=== PATIENT | female | born 1950 | race Caucasian/White ===

== ENCOUNTER 2017-01-10 20:05 | Inpatient (IN) | payer SELFPAY ==
[2017-01-10] MEDS ORDERED: IPRATROPIUM/ALBUTEROL 0.5-2.5 MG/3 ML AMPUL NEB ONE ×3 (20:14→22:31)
[2017-01-10] MEDS ORDERED: ALBUTEROL SULFATE 0.083% NEB 2.5 MG/3 ML AMPUL NEB ONE ×3 (20:16→22:31)
[2017-01-10] MEDS ORDERED: PREDNISONE 20 MG TABLET PO ONE (20:17)
[2017-01-10] MEDS ORDERED: MAGNESIUM SULFATE/D5W 1 GM/100 ML RTUPB IV ONE ×2 (20:37)
--- NOTE | 2017-01-10 20:38 | ER Document Report ---
ED Respiratory Problem - General Chief Complaint: Shortness Of Breath Stated Complaint: TROUBLE BREATHING Time seen by provider: 20:38 Mode of Arrival: Ambulatory Information source: Patient - HPI Patient complains to provider of: COPD, Cough, Short of breath Onset: Last week Duration: Continuous, Worse/persistent Quality of pain: Achy Severity: Mild Pain Level: 1 Context: Smoker Short of Breath: Moderate Chest pain/discomfort: Tightness Cough: Productive Sputum amount: Small Sputum color: White Sputum consistency: Mucoid At home treatment: Bronchodilators, Oral steroids Associated symptoms: Chills, Congestion, Cough, Difficulty breathing, Extertional dyspnea, Fever, Short of breath Similar symptoms previously: Yes Recently seen / treated by doctor: Yes Notes: Patient is a 66-year-old female who presents to the emergency room for complaints of cough, shortness of breath, chest tightness, symptoms have been going on for about a week, and have worsened, she was seen by her primary care provider on 2 occasions over the past week, was diagnosed with bronchitis and started on a Z-Chandrakant, also started on steroids, her cough is productive of a small amount of white mucus, patient has a history of COPD, she smokes 2-3 packs per day, she does not currently use oxygen at home, she was never admitted for COPD previously, and never intubated in the past - Related Data Allergies/Adverse Reactions: morphine Allergy (Verified 01/10/17 20:12) Penicillins Allergy (Verified 01/10/17 20:12) Sulfa (Sulfonamide Antibiotics) Allergy (Verified 01/10/17 20:12) Tetracyclines Allergy (Verified 01/10/17 20:12) Past Medical History - General Information source: Patient - Social History Smoking Status: Current Every Day Smoker Family History: Reviewed & Not Pertinent Patient has suicidal ideation: No Patient has homicidal ideation: No Renal/ Medical History: Denies: Hx Peritoneal Dialysis Review of Systems - Review of Systems Constitutional: Fever EENT: No symptoms reported Cardiovascular: No symptoms reported Respiratory: See HPI Gastrointestinal: No symptoms reported Genitourinary: No symptoms reported Female Genitourinary: No symptoms reported Musculoskeletal: No symptoms reported Skin: No symptoms reported Hematologic/Lymphatic: No symptoms reported Neurological/Psychological: No symptoms reported -: Yes All other systems reviewed and negative Physical Exam - Vital signs Vitals: Temp Pulse Resp BP Pulse Ox 97.3 F 103 H 22 H 165/76 H 92 01/10/17 20:10 01/10/17 20:10 01/10/17 20:10 01/10/17 20:10 01/10/17 20:10 Interpretation: Hypertensive, Tachycardic, Tachypneic - General General appearance: Appears well, Alert - HEENT Head: Normocephalic, Atraumatic Eyes: Normal Pupils: PERRL - Respiratory Respiratory status: Tachypnea Chest status: Nontender Breath sounds: Productive cough, Wheezing Chest palpation: Normal - Cardiovascular Rhythm: Regular Heart sounds: Normal auscultation Murmur: No - Abdominal Inspection: Normal Distension: No distension Bowel sounds: Normal Tenderness: Nontender Organomegaly: No organomegaly - Back Back: Normal, Nontender - Extremities General upper extremity: Normal inspection, Nontender, Normal color, Normal ROM , Normal temperature General lower extremity: Normal inspection, Nontender, Normal color, Normal ROM , Normal temperature, Normal weight bearing. No: Lisset's sign - Neurological Neuro grossly intact: Yes Cognition: Normal Orientation: AAOx4 [place] Coma Scale Eye Opening: Spontaneous [place] Coma Scale Verbal: Oriented [place] Coma Scale Motor: Obeys Commands Everardo Coma Scale Total: 15 Speech: Normal Motor strength normal: LUE, RUE, LLE, RLE Sensory: Normal - Psychological Associated symptoms: Normal affect, Normal mood - Skin Skin Temperature: Warm Skin Moisture: Dry Skin Color: Normal Course - Re-evaluation Re-evalutation: 01/11/17 00:48 I attempted to ambulate patient, she became acutely short of breath, pulse ox dropped to 83%, I discussed admission with patient and she is in agreement - Vital Signs Vital signs: Temp Pulse Resp BP Pulse Ox 97.3 F 103 H 20 112/70 95 01/10/17 20:10 01/10/17 20:10 01/11/17 03:01 01/11/17 03:01 01/11/17 03:01 - Laboratory Result Diagrams: 01/10/17 20:25 01/10/17 20:25 Laboratory results interpreted by me: 01/10/17 01/10/17 20:25 20:25 RBC 5.87 H Hgb 17.2 H Hct 51.9 H Plt Count 470 H Chloride 95 L Carbon Dioxide 34 H Calcium 10.5 H AST 61 H ALT 64 H Total Protein 8.7 H - Diagnostic Test Radiology reviewed: Image reviewed, Reports reviewed - EKG Interpretation by Me EKG shows normal: Sinus rhythm Rate: Normal Rhythm: NSR Critical Care Note - Critical Care Note Total time excluding time spent on procedures (mins): 45 Comments: Patient requiring multiple breathing treatments, multiple re-evaluations, requiring admission for further evaluation and treatment Discharge - Discharge Clinical Impression: COPD (chronic obstructive pulmonary disease) Qualifiers: COPD type: COPD with acute exacerbation Qualified Code(s): J44.1 - Chronic obstructive pulmonary disease with (acute) exacerbation Condition: Fair Disposition: ADMITTED INPATIENT Admitting Provider: Hospitalist Unit Admitted: Telemetry
[2017-01-10 20:41] LABS: ABSOLUTE MONOCYTES (AUTO) 0.8 10^3/uL (0.1-1.4); ABSOLUTE NEUT (AUTO) 5.2 10^3/uL (1.7-8.2); BASOPHILS % (AUTO) 0.5 % (0-2); EOSINOPHILS % (AUTO) 0.5 % (0-6); HEMATOCRIT 51.9 % (36.0-47.0); HEMOGLOBIN 17.2 g/dL (12.0-15.5); HGB HCT DIFFERENCE -0.3; LYMPHOCYTES % (AUTO) 39.7 % (13-45); MEAN CORPUSCULAR HEMOGLOBIN 29.3 pg (27.0-33.4); MEAN CORPUSCULAR HGB CONC 33.1 g/dL (32.0-36.0); MEAN CORPUSCULAR VOLUME 88 fl (80-97); MONOCYTES % (AUTO) 7.7 % (3-13); RED BLOOD COUNT 5.87 10^6/uL (3.72-5.28); RED CELL DISTRIBUTION WIDTH 13.8 % (11.5-14.0); SEGMENTED NEUTROPHILS % (AUTO) 51.6 % (42-78); WHITE BLOOD COUNT 10.1 10^3/uL (4.0-10.5)
[2017-01-10 21:16] LABS: CREATINE KINASE MB 0.94 ng/mL (<4.55)
[2017-01-10 21:24] LABS: TROPONIN I < 0.012 ng/mL
[2017-01-10 21:49] LABS: ALANINE AMINOTRANSFERASE 64 U/L (9-52); ALKALINE PHOSPHATASE 112 U/L (38-126); ANION GAP 14 (5-19); ASPARTATE AMINO TRANSFERASE 61 U/L (14-36); BILIRUBIN,TOTAL 0.8 mg/dL (0.2-1.3); BLOOD UREA NITROGEN 14 mg/dL (7-20); CALCIUM 10.5 mg/dL (8.4-10.2); CARBON DIOXIDE 34 mmol/L (22-30); CHLORIDE 95 mmol/L (98-107); CREATINE KINASE 33 U/L (30-135); GLUCOSE 106 mg/dL (75-110); MAGNESIUM 2.3 mg/dL (1.6-2.3); POTASSIUM 4.6 mmol/L (3.6-5.0); SODIUM 142.8 mmol/L (137-145); TOTAL PROTEIN 8.7 g/dL (6.3-8.2)
[2017-01-11] MEDS ORDERED: ACETAMINOPHEN 325 MG TABLET PO PRN (01:20)
[2017-01-11] MEDS ORDERED: LACTULOSE SYRUP 20 GM/30 ML UDCUP PO ONE (01:20)
[2017-01-11] MEDS ORDERED: KETOROLAC TROMETHAMINE INJ/PF 30 MG/1 ML SDV IV PRN (01:20)
[2017-01-11] MEDS ORDERED: GUAIFENESIN SYRP 200 MG/10 ML UDC PO PRN (01:21)
[2017-01-11] MEDS ORDERED: IPRATROPIUM/ALBUTEROL 0.5-2.5 MG/3 ML AMPUL NEB PRN (01:21)
[2017-01-11] MEDS ORDERED: DILTIAZEM HCL 30 MG TABLET PO ONE (01:30)
[2017-01-11] MEDS ORDERED: FLUTICASONE NASAL SPRAY 50 MCG/SPRY 120 SPRAY/16 GM NASL ONE (01:30)
[2017-01-11] MEDS ORDERED: LEVOFLOXACIN 750 MG/D5W RTU 750 MG/150 ML RTUPB IV ONE (02:00)
[2017-01-11] MEDS ORDERED: FLUTICASONE NASAL SPRAY 50 MCG/SPRY 120 SPRAY/16 GM ONE (02:10)
[2017-01-11] MEDS: IPRATROPIUM/ALBUTEROL 0.5-2.5 MG/3 ML AMPUL NEB SCH ×4 (02:26→19:37)
[2017-01-11 06:22] LABS: ABSOLUTE LYMPHOCYTES (AUTO) 1.4 10^3/uL (0.5-4.7); ABSOLUTE MONOCYTES (AUTO) 0.6 10^3/uL (0.1-1.4); ABSOLUTE NEUT (AUTO) 5.9 10^3/uL (1.7-8.2); BASOPHILS % (AUTO) 0.2 % (0-2); HEMATOCRIT 44.3 % (36.0-47.0); HGB HCT DIFFERENCE -0.8; LYMPHOCYTES % (AUTO) 17.7 % (13-45); MEAN CORPUSCULAR HEMOGLOBIN 29.1 pg (27.0-33.4); MEAN CORPUSCULAR HGB CONC 32.7 g/dL (32.0-36.0); MEAN CORPUSCULAR VOLUME 89 fl (80-97); MONOCYTES % (AUTO) 7.7 % (3-13); RED BLOOD COUNT 4.98 10^6/uL (3.72-5.28); RED CELL DISTRIBUTION WIDTH 14.4 % (11.5-14.0); SEGMENTED NEUTROPHILS % (AUTO) 74.4 % (42-78)
[2017-01-11] MEDS: HEPARIN SOD (PORCINE) 5,000 UNIT/ML 1 ML SYRINGE SUBCUT SCH ×3 (06:24→21:57)
[2017-01-11] MEDS: DILTIAZEM HCL 30 MG TABLET PO SCH ×3 (06:24→17:29)
--- NOTE | 2017-01-11 06:36 | PDOC H&P ---
History of Present Illness Admission Date/PCP: 01/11/17 01:21 ADITYA DE LEÓN, Patient complains of: Sinus congestion and shortness of breath History of Present Illness: JANETH VINSON is a 66 year old female with a past medical history of COPD, Tobacco Dependence with [id number] history currently smoking 2 packs per day. She was in her usual state of health until approximately 2 days ago noting exceptional sinus congestion postnasal drip and nonproductive cough denying fever chills nausea vomiting. In the Emergency room she's found to have an tachypnea, tachycardia, pulse ox in the mid 80s and bicarbonate of 34 she started on supplemental oxygen albuterol and Atrovent and referred to the hospitalist for admission. Patient denies new medications chest pain palpitations nausea vomiting Past Medical History Pulmonary Medical History: Reports: Chronic Obstructive Pulmonary Disease (COPD) Psychiatric Medical History: Reports: Depression Social History Information Source: Patient Smoking Status: Current Every Day Smoker Cigarettes Packs Per Day: 2 Number of Years Smokin Frequency of Alcohol Use: None Hx Recreational Drug Use: No Hx Prescription Drug Abuse: No - Advance Directive Resuscitation Status: Full Code Family History Family History: COPD Parental Family History Reviewed: Yes Children Family History Reviewed: Yes Sibling(s) Family History Reviewed.: Yes Medication/Allergy Home Medications: Albuterol Sulfate [Ventolin Hfa] 2 inh PO Q4H PRN 01/11/17 Prednisone [Prednisone] 20 mg PO DAILY 01/11/17 Allergies/Adverse Reactions: morphine Allergy (Verified 01/10/17 20:12) Penicillins Allergy (Verified 01/10/17 20:12) Sulfa (Sulfonamide Antibiotics) Allergy (Verified 01/10/17 20:12) Tetracyclines Allergy (Verified 01/10/17 20:12) Review of Systems Constitutional: PRESENT: as per HPI Eyes: ABSENT: visual disturbances Ears: ABSENT: hearing changes Nose, Mouth, and Throat: PRESENT: other - Maxillary a sinus congestion and pain to percussion Cardiovascular: ABSENT: chest pain, dyspnea on exertion, edema, orthropnea, palpitations Respiratory: PRESENT: dyspnea. ABSENT: hemoptysis, sputum Gastrointestinal: ABSENT: abdominal pain, constipation, diarrhea, hematemesis, hematochezia, nausea, vomiting Genitourinary: ABSENT: dysuria, hematuria Musculoskeletal: ABSENT: joint swelling Integumentary: ABSENT: rash, wounds Neurological: ABSENT: abnormal gait, abnormal speech, confusion, dizziness, focal weakness, syncope Psychiatric: ABSENT: anxiety, depression, homidical ideation, suicidal ideation Endocrine: ABSENT: cold intolerance, heat intolerance, polydipsia, polyuria Hematologic/Lymphatic: ABSENT: easy bleeding, easy bruising Physical Exam Vital Signs: Temp Pulse Resp BP Pulse Ox 98.0 F 97 21 H 114/72 97 01/11/17 04:35 01/11/17 04:35 01/11/17 04:35 01/11/17 04:35 01/11/17 04:35 Intake & Output 01/09/17 01/10/17 01/11/17 11:59 11:59 11:59 Intake Total 3 Balance 3 Weight 48.4 kg General appearance: PRESENT: cooperative, mild distress, thin Head exam: PRESENT: atraumatic, normocephalic Eye exam: PRESENT: conjunctiva pink, EOMI, PERRLA. ABSENT: scleral icterus Ear exam: PRESENT: normal external ear exam Mouth exam: PRESENT: moist, tongue midline Neck exam: ABSENT: carotid bruit, JVD, lymphadenopathy, thyromegaly Respiratory exam: PRESENT: accessory muscle use, crackles, decreased breath sounds, prolonged expiratory phas, symmetrical, tachypnea. ABSENT: chest wall tenderness, rhonchi, stridor, wheezes Cardiovascular exam: PRESENT: bradycardia Pulses: PRESENT: normal dorsalis pedis pul Vascular exam: PRESENT: normal capillary refill GI/Abdominal exam: PRESENT: normal bowel sounds, soft. ABSENT: distended, guarding, mass, organolmegaly, rebound, tenderness Rectal exam: PRESENT: deferred Extremities exam: PRESENT: full ROM. ABSENT: calf tenderness, clubbing, pedal edema Neurological exam: PRESENT: alert, awake, oriented to person, oriented to place , oriented to time, oriented to situation, CN II-XII grossly intact. ABSENT: motor sensory deficit Psychiatric exam: PRESENT: appropriate affect, normal mood. ABSENT: homicidal ideation, suicidal ideation Skin exam: PRESENT: dry, intact, warm. ABSENT: cyanosis, rash Results Impressions: Chest X-Ray 01/10/17 20:16 IMPRESSION: COPD. NO ACUTE RADIOGRAPHIC FINDING IN THE CHEST. Assessment & Plan - Diagnosis (1) COPD exacerbation Is this a current diagnosis for this admission?: YesPlan: Likely secondary to maxillary sinusitis versus sinus allergy she receive symptomatically management with albuterol Atrovent, prednisone empiric antibiotics and Claritin (2) Acute exacerbation of chronic bronchitis Is this a current diagnosis for this admission?: YesPlan: Please see #1 (3) Maxillary sinusitis Is this a current diagnosis for this admission?: YesPlan: Please see #1 in addition to Flonase (4) Tobacco abuse Is this a current diagnosis for this admission?: YesPlan: Tobacco Dependence patient received tobacco cessation counseling and offered nicotine replacement options (5) Tachycardia Is this a current diagnosis for this admission?: YesPlan: Concern for development of A. fib given her tachycardia and need for albuterol I will place her on low-dose diltiazem - Time Time Spent: 30 to 50 Minutes - Inpatient Certification Medical Necessity: Need Close Monitoring Due to Risk of Patient Decompensation
[2017-01-11 06:47] LABS: HEMOGLOBIN 14.5 g/dL (12.0-15.5)
[2017-01-11 06:50] LABS: ANION GAP 11 (5-19); BLOOD UREA NITROGEN 10 mg/dL (7-20); CALCIUM 9.5 mg/dL (8.4-10.2); CARBON DIOXIDE 32 mmol/L (22-30); CHLORIDE 95 mmol/L (98-107); CREATININE RESULT 0.59 mg/dL (0.52-1.25); GLUCOSE 124 mg/dL (75-110); POTASSIUM 4.4 mmol/L (3.6-5.0); SODIUM 137.8 mmol/L (137-145)
--- NOTE | 2017-01-11 09:39 | EKG REPORT ---
SEVERITY:- BORDERLINE ECG - SINUS RHYTHM POOR R PROGRESSION ANTERIOR PRECORDIAL LEADS. : Confirmed by: Hamlet Burger MD 11-Jan-2017 09:38:09
[2017-01-11] MEDS ORDERED: PREDNISONE 20 MG TABLET PO SCH (10:00)
[2017-01-11] MEDS ORDERED: METHYLPREDNISOLONE INJ 40 MG/1 ML SDV IV ONE (10:30)
[2017-01-11] MEDS: FLUTICASONE NASAL SPRAY 50 MCG/SPRY 120 SPRAY/16 GM NASL SCH ×2 (10:39→21:57)
[2017-01-11] MEDS ORDERED: LORAZEPAM 1 MG TABLET PO PRN ×2 (11:15→17:32)
--- NOTE | 2017-01-11 11:26 | PDOC PROGRESS REPORT ---
Subjective Progress Note for:: 01/11/17 Subjective:: Complaints of a nonproductive cough and shortness of breath. She reports it slightly better than when she presented. Physical Exam Vital Signs: Temp Pulse Resp BP Pulse Ox 97.8 F 107 H 20 123/66 2 L 01/11/17 07:16 01/11/17 08:27 01/11/17 08:27 01/11/17 07:16 01/11/17 08:27 Intake & Output 01/10/17 01/11/17 01/12/17 06:59 06:59 06:59 Intake Total 243 Balance 243 Weight 48.4 kg General appearance: PRESENT: mild distress Eye exam: PRESENT: conjunctiva pink. ABSENT: scleral icterus Mouth exam: PRESENT: moist, tongue midline Neck exam: ABSENT: JVD Respiratory exam: PRESENT: wheezes - Bilateral expiratory wheezes. ABSENT: rales, rhonchi Cardiovascular exam: PRESENT: RRR. ABSENT: diastolic murmur, rubs, systolic murmur GI/Abdominal exam: PRESENT: normal bowel sounds, soft. ABSENT: distended, guarding, mass, organolmegaly, rebound, tenderness Extremities exam: ABSENT: calf tenderness, clubbing, pedal edema Neurological exam: PRESENT: alert, awake, oriented to person, oriented to place , oriented to time, oriented to situation Psychiatric exam: PRESENT: appropriate affect Skin exam: PRESENT: dry, intact, warm. ABSENT: cyanosis, rash Results Laboratory Results: 01/11/17 05:32 01/11/17 05:32 01/11/17 01/11/17 05:32 05:32 WBC 8.0 RBC 4.98 Hgb 14.5 D Hct 44.3 MCV 89 MCH 29.1 MCHC 32.7 RDW 14.4 H Plt Count 418 Seg Neutrophils % 74.4 Lymphocytes % 17.7 Monocytes % 7.7 Eosinophils % 0.0 Basophils % 0.2 Absolute Neutrophils 5.9 Absolute Lymphocytes 1.4 Absolute Monocytes 0.6 Absolute Eosinophils 0.0 Absolute Basophils 0.0 Sodium 137.8 Potassium 4.4 Chloride 95 L Carbon Dioxide 32 H Anion Gap 11 BUN 10 Creatinine 0.59 Est GFR ( Amer) > 60 Est GFR (Non-Af Amer) > 60 Glucose 124 H Calcium 9.5 Impressions: Chest X-Ray 01/10/17 20:16 IMPRESSION: COPD. NO ACUTE RADIOGRAPHIC FINDING IN THE CHEST. Assessment & Plan - Diagnosis (1) COPD exacerbation Is this a current diagnosis for this admission?: YesPlan: Patient most likely has a maxillary sinusitis versus allergic rhinitis as the cause for her acute COPD exacerbation. We will give IV steroids and continue with Levaquin and nebulizers. (2) Maxillary sinusitis Is this a current diagnosis for this admission?: Yes (3) Tachycardia Is this a current diagnosis for this admission?: Yes (4) Anxiety Is this a current diagnosis for this admission?: YesPlan: We'll give Ativan as needed. (5) Tobacco abuse Is this a current diagnosis for this admission?: YesPlan: She is encouraged to quit smoking - Time Time Spent with patient: 25-34 minutes - Inpatient Certification Medical Necessity: Need for IV Antibiotics
[2017-01-11] MEDS: METHYLPREDNISOLONE INJ 40 MG/1 ML SDV IV SCH ×2 (14:18→21:57)
[2017-01-11] MEDS ORDERED: LEVOFLOXACIN 750 MG/D5W RTU 750 MG/150 ML RTUPB IV SCH (18:00)
[2017-01-12] MEDS: DILTIAZEM HCL 30 MG TABLET PO SCH ×2 (00:37→06:01)
[2017-01-12] MEDS: IPRATROPIUM/ALBUTEROL 0.5-2.5 MG/3 ML AMPUL NEB SCH ×2 (01:20→08:14)
[2017-01-12 04:33] LABS: ABSOLUTE LYMPHOCYTES (AUTO) 0.8 10^3/uL (0.5-4.7); ABSOLUTE MONOCYTES (AUTO) 0.1 10^3/uL (0.1-1.4); ABSOLUTE NEUT (AUTO) 5.4 10^3/uL (1.7-8.2); BASOPHILS % (AUTO) 0.2 % (0-2); HEMATOCRIT 43.2 % (36.0-47.0); HEMOGLOBIN 14.6 g/dL (12.0-15.5); HGB HCT DIFFERENCE 0.6; LYMPHOCYTES % (AUTO) 12.8 % (13-45); MEAN CORPUSCULAR HEMOGLOBIN 29.8 pg (27.0-33.4); MEAN CORPUSCULAR HGB CONC 33.8 g/dL (32.0-36.0); MEAN CORPUSCULAR VOLUME 88 fl (80-97); MONOCYTES % (AUTO) 2.1 % (3-13); RED BLOOD COUNT 4.89 10^6/uL (3.72-5.28); RED CELL DISTRIBUTION WIDTH 13.9 % (11.5-14.0); SEGMENTED NEUTROPHILS % (AUTO) 84.9 % (42-78); WHITE BLOOD COUNT 6.4 10^3/uL (4.0-10.5)
[2017-01-12 05:03] LABS: ANION GAP 7 (5-19); BLOOD UREA NITROGEN 16 mg/dL (7-20); CALCIUM 10.4 mg/dL (8.4-10.2); CARBON DIOXIDE 33 mmol/L (22-30); CHLORIDE 97 mmol/L (98-107); CREATININE RESULT 0.59 mg/dL (0.52-1.25); GLUCOSE 123 mg/dL (75-110); SODIUM 136.7 mmol/L (137-145)
[2017-01-12] MEDS: HEPARIN SOD (PORCINE) 5,000 UNIT/ML 1 ML SYRINGE SUBCUT SCH (06:02)
[2017-01-12] MEDS: METHYLPREDNISOLONE INJ 40 MG/1 ML SDV IV SCH (06:02)
[2017-01-12] MEDS ORDERED: LORAZEPAM 0.5 MG TABLET PO PRN (07:04)
[2017-01-12 08:17] VITALS: BP 119/66
--- NOTE | 2017-01-12 10:50 | PDOC DISCHARGE SUMMARY ---
General - Admit/Disc Date/PCP Admission Date/Primary Care Provider: 01/11/17 01:21 ADITYA Raymond SARTHAK, Discharge Date: 01/12/17 - Discharge Diagnosis (1) COPD exacerbation Is this a current diagnosis for this admission?: Yes (2) Maxillary sinusitis Is this a current diagnosis for this admission?: Yes (3) Tachycardia Is this a current diagnosis for this admission?: Yes (4) Anxiety Is this a current diagnosis for this admission?: Yes (5) Tobacco abuse Is this a current diagnosis for this admission?: Yes - Additional Information Resuscitation Status: Full Code Discharge Diet: Regular Discharge Activity: Activity As Tolerated Home Medications: Albuterol Sulfate [Albuterol Sulfate 2.5mg/3 mL] 1 vial IH Q3HP PRN 01/11/17 Albuterol Sulfate [Ventolin Hfa] 2 puff IH Q4HP PRN 01/11/17 Guaifenesin [Mucinex] 600 mg PO Q12 01/11/17 Diltiazem HCl [Diltiazem 24Hr Cd] 120 mg PO DAILY #30 cap.er.24h 01/12/17 Lorazepam [Ativan 0.5 mg Tablet] 0.5 mg PO Q4HP PRN #30 tablet 01/12/17 Prednisone 10 mg PO DAILY #39 tablet 01/12/17 History of Present Illness History of Present Illness: JANETH VINSON is a 66 year old female with history of COPD and smoking history who presented with 2 day history of sinus congestion along with shortness of breath and wheezing. Patient was found to be hypoxic with pulse ox in the mid 80s. She also had significant wheezing. Patient was admitted for further treatment of an acute COPD exacerbation. Hospital Course Hospital Course: 66-year-old female with a long history of tobacco abuse who presented with an acute COPD exacerbation. The patient was treated with IV steroids and nebulizers and had quick improvement. Patient also did have complaints of anxiety and she was given Ativan and this also improved her respiratory status. The patient on the day of discharge is back to her baseline respiratory status and she is encouraged to quit smoking. Patient also hospitalized to develop tachycardia was started on diltiazem. She was switched from short acting diltiazem long-acting diltiazem we'll send her home on. Physical Exam Vital Signs: Temp Pulse Resp BP Pulse Ox 97.5 F 94 18 119/66 94 01/12/17 09:32 01/12/17 09:32 01/12/17 09:32 01/12/17 09:32 01/12/17 09:32 Intake & Output 01/11/17 01/12/17 01/13/17 06:59 06:59 06:59 Intake Total 243 605 Output Total 450 Balance 243 155 Weight 48.4 kg 48.4 kg General appearance: PRESENT: no acute distress Eye exam: PRESENT: conjunctiva pink. ABSENT: scleral icterus Mouth exam: PRESENT: moist, tongue midline Neck exam: ABSENT: JVD Respiratory exam: PRESENT: clear to auscultation zen. ABSENT: rales, rhonchi, wheezes Cardiovascular exam: PRESENT: RRR. ABSENT: diastolic murmur, rubs, systolic murmur GI/Abdominal exam: PRESENT: normal bowel sounds, soft. ABSENT: distended, guarding, mass, organolmegaly, rebound, tenderness Extremities exam: ABSENT: calf tenderness, clubbing, pedal edema Neurological exam: PRESENT: alert, awake, oriented to person, oriented to place , oriented to time, oriented to situation, CN II-XII grossly intact. ABSENT: motor sensory deficit Psychiatric exam: PRESENT: appropriate affect Skin exam: PRESENT: dry, intact, warm. ABSENT: cyanosis, rash Results Laboratory Results: 01/12/17 03:47 01/12/17 03:47 01/12/17 01/12/17 03:47 03:47 WBC 6.4 RBC 4.89 Hgb 14.6 Hct 43.2 MCV 88 MCH 29.8 MCHC 33.8 RDW 13.9 Plt Count 398 Seg Neutrophils % 84.9 H Lymphocytes % 12.8 L Monocytes % 2.1 L Eosinophils % 0.0 Basophils % 0.2 Absolute Neutrophils 5.4 Absolute Lymphocytes 0.8 Absolute Monocytes 0.1 Absolute Eosinophils 0.0 Absolute Basophils 0.0 Sodium 136.7 L Potassium 5.0 Chloride 97 L Carbon Dioxide 33 H Anion Gap 7 BUN 16 Creatinine 0.59 Est GFR ( Amer) > 60 Est GFR (Non-Af Amer) > 60 Glucose 123 H Calcium 10.4 H Impressions: Chest X-Ray 01/10/17 20:16 IMPRESSION: COPD. NO ACUTE RADIOGRAPHIC FINDING IN THE CHEST. Qualifiers PATEINT BEING DISCHARGED WITH ANY OF THE FOLLOWING DIAGNOSIS?: No Plan Discharge Plan: Patient is discharged home and will follow-up with her primary care doctor in 1 week. Time Spent: Greater than 30 Minutes
== END 2017-01-12 10:15 | disposition home or self-care (01) | DRG 192 ==
LOC: ER 20:05 → EH 01-11 01:21 → 5 01-11 03:54
PROVIDERS: ADMIT Internal Medicine; ATTEND Internal Medicine
PROC: 3E0F73Z Introduction of Anti-inflammatory into Respiratory Tract, Via Natural or Artificial Opening (ICD-10-PCS; principal; 2017-01-11)
DX: J44.1 Chronic obstructive pulmonary disease with (acute) exacerbation (principal); J32.0 Chronic maxillary sinusitis; R00.0 Tachycardia, unspecified; F41.9 Anxiety disorder, unspecified; F17.210 Nicotine dependence, cigarettes, uncomplicated; F32.9 Major depressive disorder, single episode, unspecified; Z79.899 Other long term (current) drug therapy; Z79.51 Long term (current) use of inhaled steroids; Z88.6 Allergy status to analgesic agent; Z88.2 Allergy status to sulfonamides; Z88.0 Allergy status to penicillin; Z88.3 Allergy status to other anti-infective agents; Z82.5 Family history of asthma and other chronic lower respiratory diseases
CPT/HCPCS: 36415; 71010; 80048; 80053; 82550; 82553; 83735; 84484; 85025; 87040; 87077; 87186; 93005; 93010; 94640; 94668; 96365; 99291; J1644; J1956; J2920; J3475; J3490; J7512; J7620

== ENCOUNTER 2017-11-16 16:16 | Inpatient (IN) | payer MEDICARE ==
[2017-11-16] MEDS ORDERED: METHYLPREDNISOLONE INJ 125 MG/2 ML SDV ONE (16:34)
[2017-11-16] MEDS ORDERED: IPRATROPIUM/ALBUTEROL 0.5-2.5 MG/3 ML AMPUL NEB ONE ×4 (16:34→17:16)
[2017-11-16] MEDS ORDERED: METHYLPREDNISOLONE INJ 125 MG/2 ML SDV IV ONE (16:37)
--- NOTE | 2017-11-16 17:04 | RADIOLOGY REPORT (SQ) ---
EXAM DESCRIPTION: CHEST SINGLE VIEW COMPLETED DATE/TIME: 11/16/2017 4:53 pm REASON FOR STUDY: copd exacerbaion COMPARISON: 01/10/2017 EXAM PARAMETERS: NUMBER OF VIEWS: One view. TECHNIQUE: Single frontal radiographic view of the chest acquired. RADIATION DOSE: NA LIMITATIONS: None. FINDINGS: LUNGS AND PLEURA: Lung [place] appear over expanded. No developing infiltrates. MEDIASTINUM AND HILAR STRUCTURES: No masses. Contour normal. HEART AND VASCULAR STRUCTURES: Heart normal in size. Normal vasculature. BONES: No acute findings. HARDWARE: None in the chest. OTHER: No other significant finding. IMPRESSION: Overexpansion of the lung [place]. No developing infiltrates. TECHNICAL DOCUMENTATION: JOB ID: [id number] [employer]- All Rights Reserved
[2017-11-16 17:13] LABS: ABSOLUTE BASOPHILS # (AUTO) 0.1 10^3/uL (0.0-0.2); ABSOLUTE EOSINOPHILS # (AUTO) 0.1 10^3/uL (0.0-0.6); ABSOLUTE LYMPHOCYTES (AUTO) 1.6 10^3/uL (0.5-4.7); ABSOLUTE MONOCYTES (AUTO) 0.9 10^3/uL (0.1-1.4); ABSOLUTE NEUT (AUTO) 7.1 10^3/uL (1.7-8.2); BASOPHILS % (AUTO) 0.9 % (0-2); EOSINOPHILS % (AUTO) 0.5 % (0-6); HEMATOCRIT 48.1 % (36.0-47.0); HEMOGLOBIN 16.2 g/dL (12.0-15.5); LYMPHOCYTES % (AUTO) 16.8 % (13-45); MEAN CORPUSCULAR HEMOGLOBIN 30.1 pg (27.0-33.4); MEAN CORPUSCULAR HGB CONC 33.7 g/dL (32.0-36.0); MEAN CORPUSCULAR VOLUME 89 fl (80-97); MONOCYTES % (AUTO) 9.1 % (3-13); PLATELET COUNT 415 10^3/uL (150-450); RED BLOOD COUNT 5.38 10^6/uL (3.72-5.28); RED CELL DISTRIBUTION WIDTH 13.8 % (11.5-14.0); SEGMENTED NEUTROPHILS % (AUTO) 72.7 % (42-78); TOTAL CELLS COUNTED % (AUTO) 100 %; WHITE BLOOD COUNT 9.7 10^3/uL (4.0-10.5)
[2017-11-16 17:42] LABS: ALANINE AMINOTRANSFERASE 27 U/L (9-52); ALBUMIN 4.8 g/dL (3.5-5.0); ALKALINE PHOSPHATASE 150 U/L (38-126); ANION GAP 13 (5-19); ASPARTATE AMINO TRANSFERASE 24 U/L (14-36); BILIRUBIN,DIRECT 0.4 mg/dL (0.0-0.4); BILIRUBIN,TOTAL 0.5 mg/dL (0.2-1.3); BLOOD UREA NITROGEN 17 mg/dL (7-20); CALCIUM 10.6 mg/dL (8.4-10.2); CARBON DIOXIDE 33 mmol/L (22-30); CHLORIDE 93 mmol/L (98-107); CREATINE KINASE 52 U/L (30-135); GLUCOSE 110 mg/dL (75-110); POTASSIUM 4.4 mmol/L (3.6-5.0); SODIUM 138.8 mmol/L (137-145); TOTAL PROTEIN 7.7 g/dL (6.3-8.2)
[2017-11-16] MEDS ORDERED: NORMAL SALINE 1000 ML 1,000 ML IV PRN (17:55)
[2017-11-16] MEDS ORDERED: ONDANSETRON HCL INJ/PF 4 MG/2 ML SDV IV PRN (17:55)
[2017-11-16] MEDS ORDERED: ACETAMINOPHEN 325 MG TABLET PO PRN (17:55)
--- NOTE | 2017-11-16 17:55 | ER Document Report ---
ED General - General Chief Complaint: Shortness Of Breath Stated Complaint: SHORTNESS OF BREATH Time Seen by Provider: 11/16/17 16:36 Mode of Arrival: Ambulatory Information source: Patient, Relative Notes: 67-year-old female history COPD presents with complaints of shortness of breath difficulty breathing. Patient normally smokes 2-3 packs a day has been short of breath over the past few days. Denies any fevers or productivity to cough. Patient was last admitted in January. She is a full code TRAVEL OUTSIDE OF THE [place] IN LAST 30 DAYS: No - HPI Onset: Last week Onset/Duration: Persistent, Worse Quality of pain: No pain Severity: Severe Pain Level: Denies Associated symptoms: Nonproductive cough, Shortness of breath Exacerbated by: Walking Relieved by: Denies Similar symptoms previously: Yes - Patient sent in by family practice which notes after 2 breathing treatments Recently seen / treated by doctor: Yes - Related Data Allergies/Adverse Reactions: morphine Allergy (Verified 11/16/17 16:19) Penicillins Allergy (Verified 11/16/17 16:19) Sulfa (Sulfonamide Antibiotics) Allergy (Verified 11/16/17 16:19) Tetracyclines Allergy (Verified 11/16/17 16:19) Home Medications: Current Home Medications Albuterol Sulfate [Proair HFA] 2 puff IH Q4HP PRN 11/16/17 [History] Fluticasone/Salmeterol [Advair 250-50 Diskus 14 Dose/Diskus] 2 puff IH DAILY 06/26 [History] Multivitamin [Multivitamins] 1 tab PO DAILY 11/16/17 [History] Past Medical History - Social History Smoking Status: Current Every Day Smoker Cigarette use (# per day): Yes Chew tobacco use (# tins/day): No Smoking Education Provided: Yes - Patient counselled regarding cessation for 4 minutes Frequency of alcohol use: None Drug Abuse: None Family History: COPD Patient has suicidal ideation: No Patient has homicidal ideation: No Pulmonary Medical History: Reports: Hx COPD Renal/ Medical History: Denies: Hx Peritoneal Dialysis Psychiatric Medical History: Reports: Hx Depression - Immunizations Hx Diphtheria, Pertussis, Tetanus Vaccination: Yes Review of Systems - Review of Systems Notes: REVIEW OF SYSTEMS: CONSTITUTIONAL : Denies fever, chills, or sweats. Denies recent illness. EENT: Denies eye, ear, throat, or mouth pain or symptoms. Denies nasal or sinus congestion or discharge. Denies throat, tongue, or mouth swelling or difficulty swallowing. CARDIOVASCULAR: Denies chest pain. Denies palpitations or racing or irregular heart beat. Denies ankle edema. RESPIRATORY: Admits to shortness of breath difficulty breathing GASTROINTESTINAL: Denies abdominal pain or distention. Denies nausea, vomiting , or diarrhea. Denies blood in vomitus, stools, or per rectum. Denies black, tarry stools. Denies constipation. GENITOURINARY: Denies difficulty urinating, painful urination, burning, frequency, blood in urine, or discharge. FEMALE GENITOURINARY: Denies vaginal bleeding, heavy or abnormal periods, irregular periods. Denies vaginal discharge or odor. MUSCULOSKELETAL: Denies back or neck pain or stiffness. Denies joint pain or swelling. SKIN: Denies rash, lesions or sores. HEMATOLOGIC : Denies easy bruising or bleeding. LYMPHATIC: Denies swollen, enlarged glands. NEUROLOGICAL: Denies confusion or altered mental status. Denies passing out or loss of consciousness. Denies dizziness or lightheadedness. Denies headache. Denies weakness or paralysis or loss of use of either side. Denies problems with gait or speech. Denies sensory loss, numbness, or tingling. Denies seizures. PSYCHIATRIC: Denies anxiety or stress. Denies depression, suicidal ideation, or homicidal ideation. ALL OTHER SYSTEMS REVIEWED AND NEGATIVE. PHYSICAL EXAMINATION: GENERAL: Thin frail appearing female in significant respiratory distress HEAD: Atraumatic, normocephalic. EYES: Pupils equal round and reactive to light, extraocular movements intact, conjunctiva are normal. ENT: Nares patent, oropharynx clear without exudates. Moist mucous membranes. NECK: Normal range of motion, supple without lymphadenopathy LUNGS: Coarse breath sounds all throughout HEART: Regular rate and rhythm without murmurs ABDOMEN: Soft, nontender, nondistended abdomen. No guarding, no rebound. No masses appreciated. Female : deferred Musculoskeletal: Normal range of motion, no pitting or edema. No cyanosis. NEUROLOGICAL: Cranial nerves grossly intact. Normal speech, normal gait. Normal sensory, motor exams PSYCH: Normal mood, normal affect. SKIN: Warm, Dry, normal turgor, no rashes or lesions noted. Dictation was performed using Dragon voice recognition software Physical Exam - Vital signs Vitals: Pulse Ox 87 L 11/16/17 16:36 Course - Re-evaluation Re-evalutation: 11/16/17 19:08 Patient upon arrival satting 75% on room air, she is not on oxygen at home, she is in significant respiratory distress, reading treatments were started Cymetra was given, we discussed intubation if needed patient is agreeable to this, I was able to turn the patient around with the breathing treatments, she will be admitted to the hospitalist service and has been placed on oxygen - Vital Signs Vital signs: Temp Pulse Resp BP Pulse Ox 97.9 F 30 H 121/70 92 11/16/17 16:46 11/16/17 19:00 11/16/17 19:00 11/16/17 19:00 - Laboratory Result Diagrams: 11/16/17 16:49 11/16/17 16:49 Laboratory results interpreted by me: 11/16/17 11/16/17 11/16/17 16:49 16:49 16:49 RBC 5.38 H Hgb 16.2 H Hct 48.1 H Chloride 93 L Carbon Dioxide 33 H Calcium 10.6 H Alkaline Phosphatase 150 H NT-Pro-B Natriuret Pep 1240 H Critical Care Note - Critical Care Note Total time excluding time spent on procedures (mins): 40 Comments: 40 minutes of critical care time spent in direct contact evaluating and reevaluating the patient, treating symptoms, reviewing labs and studies and speaking with family and consultants excluding any procedures Discharge - Discharge Clinical Impression: Hypoxia COPD (chronic obstructive pulmonary disease) Qualifiers: COPD type: unspecified COPD Qualified Code(s): J44.9 - Chronic obstructive pulmonary disease, unspecified Respiratory failure Qualifiers: Chronicity: acute Respiratory failure complication: unspecified whether with hypoxia or hypercapnia Qualified Code(s): J96.00 - Acute respiratory failure, unspecified whether with hypoxia or hypercapnia Condition: Stable Disposition: ADMITTED INPATIENT Admitting Provider: Hospitalist Unit Admitted: Telemetry
[2017-11-16] MEDS ORDERED: IPRATROPIUM/ALBUTEROL 0.5-2.5 MG/3 ML AMPUL NEB SCH (18:00)
[2017-11-16] MEDS ORDERED: MONTELUKAST SODIUM 10 MG TABLET PO ONE (18:01)
[2017-11-16] MEDS ORDERED: NICOTINE 21 MG/24 HR PATCH.TD24 TD ONE ×2 (18:02→21:45)
[2017-11-16 18:09] LABS: CREATINE KINASE MB 1.99 ng/mL (<4.55)
[2017-11-16 18:12] LABS: TROPONIN I 0.062 ng/mL
--- NOTE | 2017-11-16 18:49 | PDOC H&P ---
History of Present Illness Admission Date/PCP: ILSA RAMIREZ MD Patient complains of: Shortness of breath History of Present Illness: JANETH VINSON is a 67 year old female history of COPD, depression and tobacco use. She states that she has been gradually becoming more short of breath over the last week. Patient states that she noticed when the temperature dropped. Patient states she does not have any fever or chills. Patient did have a productive cough but is no longer productive. It was productive she was producing yellowish sputum. Patient was being evaluated at her PCP office when she was noted to be hypoxic in the high 70s. She does not wear supplemental oxygen at home. They gave her 2 breathing treatments however she continued to be hypoxic. Is instructed to come to the emergency department. In the ED patient was noted to be hypoxic at 75%. Patient was given 3 breathing treatments and started on 2 L oxygen along with 125 mg of IV Solu- Medrol after which her sats are now 95%. Patient would desat when the oxygen was removed. There was no finding on chest x-ray. Hospitalist was called to admit patient for COPD exacerbation with hypoxia. Past Medical History Pulmonary Medical History: Reports: Chronic Obstructive Pulmonary Disease (COPD) Psychiatric Medical History: Reports: Depression Social History Smoking Status: Current Every Day Smoker Frequency of Alcohol Use: None Hx Recreational Drug Use: No Hx Prescription Drug Abuse: No Family History Family History: COPD Parental Family History Reviewed: No Children Family History Reviewed: No Sibling(s) Family History Reviewed.: No Medication/Allergy Home Medications: Albuterol Sulfate [Proair HFA] 2 puff IH Q4HP PRN 11/16/17 Fluticasone/Salmeterol [Advair 250-50 Diskus 14 Dose/Diskus] 2 puff IH DAILY 06/26 Multivitamin [Multivitamins] 1 tab PO DAILY 11/16/17 Allergies/Adverse Reactions: morphine Allergy (Verified 11/16/17 16:19) Penicillins Allergy (Verified 11/16/17 16:19) Sulfa (Sulfonamide Antibiotics) Allergy (Verified 11/16/17 16:19) Tetracyclines Allergy (Verified 11/16/17 16:19) Review of Systems Constitutional: ABSENT: chills, fever(s), headache(s), weight gain, weight loss Eyes: ABSENT: visual disturbances Ears: ABSENT: hearing changes Cardiovascular: PRESENT: dyspnea on exertion. ABSENT: chest pain, edema, orthropnea, palpitations Respiratory: PRESENT: cough, dyspnea. ABSENT: hemoptysis Gastrointestinal: ABSENT: abdominal pain, constipation, diarrhea, hematemesis, hematochezia, nausea, vomiting Genitourinary: ABSENT: dysuria, hematuria Musculoskeletal: ABSENT: joint swelling Integumentary: ABSENT: rash, wounds Neurological: ABSENT: abnormal gait, abnormal speech, confusion, dizziness, focal weakness, syncope Psychiatric: ABSENT: anxiety, depression, homidical ideation, suicidal ideation Endocrine: ABSENT: cold intolerance, heat intolerance, polydipsia, polyuria Hematologic/Lymphatic: ABSENT: easy bleeding, easy bruising Physical Exam Vital Signs: Temp Pulse Resp BP Pulse Ox 97.9 F 26 H 122/80 98 11/16/17 16:46 11/16/17 16:46 11/16/17 16:46 11/16/17 16:46 General appearance: PRESENT: no acute distress, well-developed, well-nourished Head exam: PRESENT: atraumatic, normocephalic Eye exam: PRESENT: conjunctiva pink, EOMI, PERRLA. ABSENT: scleral icterus Ear exam: PRESENT: normal external ear exam Mouth exam: PRESENT: moist, tongue midline Neck exam: ABSENT: carotid bruit, JVD, lymphadenopathy, thyromegaly Respiratory exam: PRESENT: accessory muscle use, decreased breath sounds, tachypnea - Unable to speak in complete sentences, wheezes. ABSENT: rales, rhonchi, unlabored Cardiovascular exam: PRESENT: RRR. ABSENT: diastolic murmur, rubs, systolic murmur Pulses: PRESENT: normal dorsalis pedis pul Vascular exam: PRESENT: normal capillary refill GI/Abdominal exam: PRESENT: normal bowel sounds, soft. ABSENT: distended, guarding, mass, organolmegaly, rebound, tenderness Rectal exam: PRESENT: deferred Extremities exam: PRESENT: full ROM. ABSENT: calf tenderness, clubbing, pedal edema Neurological exam: PRESENT: alert, awake, oriented to person, oriented to place , oriented to time, oriented to situation, CN II-XII grossly intact. ABSENT: motor sensory deficit Psychiatric exam: PRESENT: appropriate affect, normal mood. ABSENT: homicidal ideation, suicidal ideation Skin exam: PRESENT: dry, intact, warm. ABSENT: cyanosis, rash Results Laboratory Results: 11/16/17 16:49 11/16/17 16:49 11/16/17 11/16/17 16:49 16:49 WBC 9.7 RBC 5.38 H Hgb 16.2 H Hct 48.1 H MCV 89 MCH 30.1 MCHC 33.7 RDW 13.8 Plt Count 415 Seg Neutrophils % 72.7 Lymphocytes % 16.8 Monocytes % 9.1 Eosinophils % 0.5 Basophils % 0.9 Absolute Neutrophils 7.1 Absolute Lymphocytes 1.6 Absolute Monocytes 0.9 Absolute Eosinophils 0.1 Absolute Basophils 0.1 Sodium 138.8 Potassium 4.4 Chloride 93 L Carbon Dioxide 33 H Anion Gap 13 BUN 17 Creatinine 0.62 Est GFR ( Amer) > 60 Est GFR (Non-Af Amer) > 60 Glucose 110 Calcium 10.6 H Total Bilirubin 0.5 AST 24 ALT 27 Alkaline Phosphatase 150 H Total Protein 7.7 Albumin 4.8 11/16/17 16:49 Creatine Kinase 52 Impressions: Chest X-Ray 11/16/17 16:36 IMPRESSION: Overexpansion of the lung [place]. No developing infiltrates. Assessment & Plan - Diagnosis (1) COPD exacerbation Is this a current diagnosis for this admission?: Yes Plan: COPD exacerbation due to acute bronchitis. Patient started on bronchodilators, inhaled steroids and systemic steroids. Patient started on antibiotic. (2) Acute exacerbation of chronic bronchitis Is this a current diagnosis for this admission?: Yes Plan: Chest x-ray clear. Patient was having productive cough now is not having a productive cough. Patient states when he was productive it was yellowish- green. Patient currently on Levaquin. Will order sputum culture. Continue with nebs, inhaled steroids, systemic steroids and Singulair. (3) Tobacco abuse Is this a current diagnosis for this admission?: Yes Plan: Counseled on tobacco cessation. Nicotine patch ordered. (4) Hypoxia Is this a current diagnosis for this admission?: Yes Plan: Likely due to COPD exacerbation from acute bronchitis. Patient does not use supplemental oxygen at home. Will continue with supplemental oxygen and wean as tolerated. - Time Time Spent: 30 to 50 Minutes Anticipated discharge: Home Within: within 48 hours
[2017-11-16] MEDS ORDERED: MAGNESIUM SULFATE/D5W 1 GM/100 ML RTUPB IV ONE (20:00)
[2017-11-16] MEDS ORDERED: ENOXAPARIN SODIUM INJ 40 MG/0.4 ML DISP.SYRIN SUBCUT ONE (20:00)
[2017-11-16] MEDS: MONTELUKAST SODIUM 10 MG TABLET PO SCH (22:12)
[2017-11-16] MEDS: LEVALBUTEROL HCL NEB 1.25 MG/3 ML AMPUL NEB SCH (23:45)
[2017-11-17] MEDS ORDERED: INFLUENZA ADLT QUAD (36MOS+) 2017-18 VAC 0.5 ML SYR IM PRN (02:39)
[2017-11-17] MEDS: LEVALBUTEROL HCL NEB 1.25 MG/3 ML AMPUL NEB SCH ×5 (04:29→20:31)
[2017-11-17 05:45] LABS: ANION GAP 10 (5-19); BLOOD UREA NITROGEN 14 mg/dL (7-20); CALCIUM 9.8 mg/dL (8.4-10.2); CARBON DIOXIDE 33 mmol/L (22-30); CHLORIDE 96 mmol/L (98-107); GLUCOSE 135 mg/dL (75-110); MAGNESIUM 2.1 mg/dL (1.6-2.3); POTASSIUM 4.4 mmol/L (3.6-5.0); SODIUM 139.3 mmol/L (137-145)
[2017-11-17] MEDS: LANSOPRAZOLE 30 MG TAB.RAP.DR PO SCH (06:01)
--- NOTE | 2017-11-17 06:39 | EKG REPORT ---
SEVERITY:- ABNORMAL ECG - SINUS TACHYCARDIA PROBABLE ANTEROSEPTAL INFARCT, AGE INDETERM BORDERLINE T ABNORMALITIES, INFERIOR LEADS : Confirmed by: Hamlet Burger MD 17-Nov-2017 06:38:13
[2017-11-17] MEDS: ENOXAPARIN SODIUM INJ 40 MG/0.4 ML DISP.SYRIN SUBCUT SCH (09:26)
[2017-11-17] MEDS: LEVOFLOXACIN 750 MG/D5W RTU 750 MG/150 ML RTUPB IV SCH (09:27)
[2017-11-17] MEDS: DOCUSATE SODIUM 100 MG CAPSULE PO SCH (09:27)
[2017-11-17] MEDS: METHYLPREDNISOLONE INJ 40 MG/1 ML SDV IV SCH ×3 (09:28→17:14)
[2017-11-17] MEDS ORDERED: BUDESONIDE NEB 0.5 MG/2 ML AMPUL NEB SCH (10:00)
[2017-11-17] MEDS ORDERED: AZITHROMYCIN 250 MG TABLET PO SCH (10:00)
[2017-11-17] MEDS ORDERED: BUDESONIDE NEB 0.5 MG/2 ML AMPUL NEB ONE (10:44)
[2017-11-17] MEDS: MULTIVITAMIN TABLET PO SCH (11:19)
[2017-11-17] MEDS ORDERED: ACETYLCYSTEINE 20% SOLN 800 MG/4 ML VIAL.NEB NEB ONE (12:26)
[2017-11-17] MEDS ORDERED: ALPRAZOLAM 0.25 MG TABLET PO PRN (12:27)
[2017-11-17] MEDS ORDERED: ALPRAZOLAM 0.25 MG TABLET PO ONE (13:30)
[2017-11-17] MEDS ORDERED: LEVALBUTEROL HCL NEB 1.25 MG/3 ML AMPUL NEB ONE (13:30)
--- NOTE | 2017-11-17 19:23 | PDOC PROGRESS REPORT ---
Subjective Progress Note for:: 11/17/17 Subjective:: She presented with COPD exacerbation. Patient was very anxious this morning stating that she does not feel as if she is getting anymore better. Patient does have diagnosed with anxiety however does not take anything for it. Patient is agreeable to have something for her anxiety. Reason For Visit: COPD EXACERBATION,TOBACCO USE,HYPOXIA Physical Exam Vital Signs: Temp Pulse Resp BP Pulse Ox 97.8 F 96 18 116/67 91 L 11/17/17 15:03 11/17/17 17:00 11/17/17 17:00 11/17/17 15:03 11/17/17 15:03 Intake & Output 11/16/17 11/17/17 11/18/17 06:59 06:59 06:59 Intake Total 300 619 Output Total 320 Balance -20 619 Weight 51.7 kg General appearance: PRESENT: no acute distress, well-developed, well-nourished Head exam: PRESENT: atraumatic, normocephalic Eye exam: PRESENT: conjunctiva pink, EOMI, PERRLA. ABSENT: scleral icterus Ear exam: PRESENT: normal external ear exam Mouth exam: PRESENT: moist Neck exam: ABSENT: carotid bruit, JVD, lymphadenopathy, thyromegaly Respiratory exam: PRESENT: accessory muscle use, retraction, wheezes. ABSENT: rales, rhonchi, unlabored Cardiovascular exam: PRESENT: RRR. ABSENT: diastolic murmur, rubs, systolic murmur GI/Abdominal exam: PRESENT: normal bowel sounds, soft. ABSENT: distended, guarding, mass, organolmegaly, rebound, tenderness Rectal exam: PRESENT: deferred Extremities exam: PRESENT: full ROM. ABSENT: calf tenderness, clubbing, pedal edema Neurological exam: PRESENT: alert, awake, oriented to person, oriented to place , oriented to time, oriented to situation, CN II-XII grossly intact. ABSENT: motor sensory deficit Psychiatric exam: PRESENT: appropriate affect, normal mood. ABSENT: homicidal ideation, suicidal ideation Skin exam: PRESENT: dry, intact, warm. ABSENT: cyanosis, rash Results Laboratory Results: 11/17/17 05:02 11/17/17 05:02 Sodium 139.3 Potassium 4.4 Chloride 96 L Carbon Dioxide 33 H Anion Gap 10 BUN 14 Creatinine 0.51 L Est GFR ( Amer) > 60 Est GFR (Non-Af Amer) > 60 Glucose 135 H Calcium 9.8 Magnesium 2.1 Impressions: Chest X-Ray 11/16/17 16:36 IMPRESSION: Overexpansion of the lung [place]. No developing infiltrates. Assessment & Plan - Diagnosis (1) COPD exacerbation Is this a current diagnosis for this admission?: Yes Plan: COPD exacerbation due to acute bronchitis. Continue bronchodilators, inhaled steroids and systemic steroids. Continue antibiotic. (2) Acute exacerbation of chronic bronchitis Is this a current diagnosis for this admission?: Yes Plan: Chest x-ray clear. Patient was having productive cough now is not having a productive cough. Patient states when he was productive it was yellowish- green. Continue Levaquin. Patient still not having productive cough. Will start mucomyst and maybe she will be able to give a sample. Continue with nebs , inhaled steroids, systemic steroids and Singulair. (3) Tobacco abuse Is this a current diagnosis for this admission?: Yes Plan: Counseled on tobacco cessation. Nicotine patch ordered. (4) Hypoxia Is this a current diagnosis for this admission?: Yes Plan: Likely due to COPD exacerbation from acute bronchitis. Patient does not use supplemental oxygen at home. Continue with supplemental oxygen and wean as tolerated. (5) Anxiety Is this a current diagnosis for this admission?: Yes Plan: Will start patient on PRN xanax. - Time Time Spent with patient: 15-24 minutes Within: within 72 hours - Inpatient Certification Medical Necessity: Need For IV Fluids, Need for Nebulizer Therapy and Monitoring of Response, Need for IV Antibiotics
[2017-11-17] MEDS: BUDESONIDE NEB 0.5 MG/2 ML AMPUL NEB SCH (20:31)
[2017-11-17] MEDS: ACETYLCYSTEINE 20% SOLN 800 MG/4 ML VIAL.NEB NEB SCH (20:32)
[2017-11-17] MEDS: FLUTICASONE NASAL SPRAY 50 MCG/SPRY 120 SPRAY/16 GM NASL SCH (21:13)
[2017-11-17] MEDS: GUAIFENESIN 600 MG TABLET.SA PO SCH (21:13)
[2017-11-17] MEDS: MONTELUKAST SODIUM 10 MG TABLET PO SCH (21:14)
[2017-11-18] MEDS: LEVALBUTEROL HCL NEB 1.25 MG/3 ML AMPUL NEB SCH ×6 (00:09→20:28)
[2017-11-18] MEDS: LANSOPRAZOLE 30 MG TAB.RAP.DR PO SCH (05:01)
[2017-11-18 06:26] LABS: ANION GAP 8 (5-19); BLOOD UREA NITROGEN 21 mg/dL (7-20); CALCIUM 10.5 mg/dL (8.4-10.2); CARBON DIOXIDE 34 mmol/L (22-30); CHLORIDE 99 mmol/L (98-107); GLUCOSE 117 mg/dL (75-110); MAGNESIUM 2.1 mg/dL (1.6-2.3); POTASSIUM 4.7 mmol/L (3.6-5.0); SODIUM 140.8 mmol/L (137-145)
[2017-11-18] MEDS: BUDESONIDE NEB 0.5 MG/2 ML AMPUL NEB SCH ×2 (08:06→20:28)
[2017-11-18] MEDS: ACETYLCYSTEINE 20% SOLN 800 MG/4 ML VIAL.NEB NEB SCH (08:07)
[2017-11-18] MEDS ORDERED: (PENDING PHARMACY ID) (Multivitamin [Multivitamins] 1 TAB) PO SCH (10:00)
[2017-11-18] MEDS: GUAIFENESIN 600 MG TABLET.SA PO SCH ×2 (10:11→21:25)
[2017-11-18] MEDS: DOCUSATE SODIUM 100 MG CAPSULE PO SCH (10:11)
[2017-11-18] MEDS: MULTIVITAMIN TABLET PO SCH (10:11)
[2017-11-18] MEDS: METHYLPREDNISOLONE INJ 40 MG/1 ML SDV IV SCH ×3 (10:12→17:44)
[2017-11-18] MEDS: LEVOFLOXACIN 750 MG/D5W RTU 750 MG/150 ML RTUPB IV SCH (10:13)
[2017-11-18] MEDS: FLUTICASONE NASAL SPRAY 50 MCG/SPRY 120 SPRAY/16 GM NASL SCH ×2 (10:13→21:25)
[2017-11-18] MEDS: ENOXAPARIN SODIUM INJ 40 MG/0.4 ML DISP.SYRIN SUBCUT SCH (10:21)
[2017-11-18] MEDS ORDERED: NICOTINE 21 MG/24 HR PATCH.TD24 TD ONE (13:00)
[2017-11-18] MEDS: OXYMETAZOLINE HCL 0.05% NASAL SPRAY 15 ML BOTTLE NASL PRN (15:25)
[2017-11-18] MEDS: SODIUM CHLORIDE NASAL SPRAY 44 ML NASL SCH ×2 (15:25→21:25)
[2017-11-18] MEDS: MUPIROCIN 2% OINTMENT 22 GM TP SCH (17:44)
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
[2017-11-18] MEDS: BUSPIRONE HCL 10 MG TABLET PO SCH (21:24)
[2017-11-18] MEDS: MONTELUKAST SODIUM 10 MG TABLET PO SCH (21:24)
[2017-11-19] MEDS: LEVALBUTEROL HCL NEB 1.25 MG/3 ML AMPUL NEB SCH ×6 (00:08→20:28)
[2017-11-19] MEDS: LORAZEPAM 0.5 MG TABLET PO PRN ×3 (04:00→21:33)
[2017-11-19] MEDS: LANSOPRAZOLE 30 MG TAB.RAP.DR PO SCH (05:01)
[2017-11-19] MEDS: SODIUM CHLORIDE NASAL SPRAY 44 ML NASL SCH ×4 (08:02→21:14)
[2017-11-19 08:35] LABS: ANION GAP 8 (5-19); BLOOD UREA NITROGEN 22 mg/dL (7-20); CALCIUM 10.1 mg/dL (8.4-10.2); CARBON DIOXIDE 36 mmol/L (22-30); CHLORIDE 96 mmol/L (98-107); GLUCOSE 102 mg/dL (75-110); MAGNESIUM 2.2 mg/dL (1.6-2.3); POTASSIUM 4.5 mmol/L (3.6-5.0); SODIUM 139.5 mmol/L (137-145)
[2017-11-19] MEDS: METHYLPREDNISOLONE INJ 40 MG/1 ML SDV IV SCH ×3 (09:29→17:11)
[2017-11-19] MEDS: BUSPIRONE HCL 10 MG TABLET PO SCH (09:30)
[2017-11-19] MEDS: OXYMETAZOLINE HCL 0.05% NASAL SPRAY 15 ML BOTTLE NASL PRN (09:31)
[2017-11-19] MEDS: DOCUSATE SODIUM 100 MG CAPSULE PO SCH (09:31)
[2017-11-19] MEDS: MULTIVITAMIN TABLET PO SCH (09:31)
[2017-11-19] MEDS: GUAIFENESIN 600 MG TABLET.SA PO SCH ×2 (09:31→21:15)
[2017-11-19] MEDS: BUDESONIDE NEB 0.5 MG/2 ML AMPUL NEB SCH ×2 (09:31→20:28)
[2017-11-19] MEDS: FLUTICASONE NASAL SPRAY 50 MCG/SPRY 120 SPRAY/16 GM NASL SCH ×2 (09:32→21:14)
[2017-11-19] MEDS: LEVOFLOXACIN 750 MG/D5W RTU 750 MG/150 ML RTUPB IV SCH (09:32)
[2017-11-19] MEDS: ENOXAPARIN SODIUM INJ 40 MG/0.4 ML DISP.SYRIN SUBCUT SCH (09:33)
[2017-11-19] MEDS: MUPIROCIN 2% OINTMENT 22 GM TP SCH ×2 (09:33→17:11)
[2017-11-19] MEDS: NICOTINE 21 MG/24 HR PATCH.TD24 TD SCH (14:04)
[2017-11-19] MEDS: MONTELUKAST SODIUM 10 MG TABLET PO SCH (21:15)
[2017-11-20] MEDS: LEVALBUTEROL HCL NEB 1.25 MG/3 ML AMPUL NEB SCH ×6 (00:29→19:49)
[2017-11-20] MEDS ORDERED: METHYLPREDNISOLONE INJ 40 MG/1 ML SDV IV SCH ×2 (02:00→06:00)
[2017-11-20] MEDS: LANSOPRAZOLE 30 MG TAB.RAP.DR PO SCH (05:24)
[2017-11-20] MEDS: BUDESONIDE NEB 0.5 MG/2 ML AMPUL NEB SCH ×2 (08:01→19:49)
[2017-11-20] MEDS: GUAIFENESIN 600 MG TABLET.SA PO SCH ×2 (09:07→21:10)
[2017-11-20] MEDS: FLUTICASONE NASAL SPRAY 50 MCG/SPRY 120 SPRAY/16 GM NASL SCH ×2 (09:07→21:09)
[2017-11-20] MEDS: DOCUSATE SODIUM 100 MG CAPSULE PO SCH (09:07)
[2017-11-20] MEDS: MULTIVITAMIN TABLET PO SCH (09:07)
[2017-11-20] MEDS: SODIUM CHLORIDE NASAL SPRAY 44 ML NASL SCH ×3 (09:07→17:37)
[2017-11-20] MEDS: MUPIROCIN 2% OINTMENT 22 GM TP SCH ×2 (09:08→17:36)
[2017-11-20] MEDS: LEVOFLOXACIN 750 MG TABLET PO SCH (09:08)
[2017-11-20] MEDS: ENOXAPARIN SODIUM INJ 40 MG/0.4 ML DISP.SYRIN SUBCUT SCH (09:09)
[2017-11-20] MEDS: METHYLPREDNISOLONE INJ 40 MG/1 ML SDV IV SCH ×2 (13:20→21:11)
[2017-11-20] MEDS: NICOTINE 21 MG/24 HR PATCH.TD24 TD SCH (13:20)
--- NOTE | 2017-11-20 18:39 | PDOC PROGRESS REPORT ---
Subjective Progress Note for:: 11/18/17 Subjective:: She presented with COPD exacerbation. Patient did not like the mucomyst. Patient states that xanax is too strong. Patient did agreeable to see psychology. Reason For Visit: COPD EXACERBATION,TOBACCO USE,HYPOXIA Physical Exam Vital Signs: Temp Pulse Resp BP Pulse Ox 97.8 F 108 H 16 144/69 H 92 11/18/17 19:54 11/18/17 20:30 11/18/17 20:30 11/18/17 19:54 11/18/17 19:54 Intake & Output 11/17/17 11/18/17 11/19/17 06:59 06:59 06:59 Intake Total 300 1179 1109 Output Total 320 700 Balance -20 479 1109 Weight 51.7 kg 51.5 kg General appearance: PRESENT: no acute distress, well-developed, well-nourished Head exam: PRESENT: normocephalic Eye exam: PRESENT: EOMI. ABSENT: scleral icterus Ear exam: PRESENT: normal external ear exam Mouth exam: PRESENT: moist Neck exam: ABSENT: carotid bruit, JVD, lymphadenopathy, thyromegaly Respiratory exam: PRESENT: decreased breath sounds, wheezes. ABSENT: rales, rhonchi Cardiovascular exam: PRESENT: RRR. ABSENT: diastolic murmur, rubs, systolic murmur GI/Abdominal exam: PRESENT: normal bowel sounds, soft. ABSENT: distended, guarding, mass, organolmegaly, rebound, tenderness Rectal exam: PRESENT: deferred Extremities exam: PRESENT: full ROM. ABSENT: calf tenderness, clubbing, pedal edema Neurological exam: PRESENT: alert, awake, oriented to person, oriented to place , oriented to time, oriented to situation, CN II-XII grossly intact. ABSENT: motor sensory deficit Psychiatric exam: PRESENT: appropriate affect, normal mood. ABSENT: homicidal ideation, suicidal ideation Skin exam: PRESENT: dry, intact, warm. ABSENT: cyanosis, rash Results Laboratory Results: 11/18/17 04:52 11/18/17 04:52 Sodium 140.8 Potassium 4.7 Chloride 99 Carbon Dioxide 34 H Anion Gap 8 BUN 21 H Creatinine 0.57 Est GFR ( Amer) > 60 Est GFR (Non-Af Amer) > 60 Glucose 117 H Calcium 10.5 H Magnesium 2.1 Impressions: Chest X-Ray 11/16/17 16:36 IMPRESSION: Overexpansion of the lung [place]. No developing infiltrates. Assessment & Plan - Diagnosis (1) Acute respiratory failure with hypoxia Is this a current diagnosis for this admission?: Yes Plan: Due to acute bronchitis with COPD exacerbation. Continue supplemental oxygen. (2) COPD exacerbation Is this a current diagnosis for this admission?: Yes Plan: COPD exacerbation due to acute bronchitis. Continue bronchodilators, inhaled steroids,systemic steroids and antibiotics. (3) Acute exacerbation of chronic bronchitis Is this a current diagnosis for this admission?: Yes Plan: Chest x-ray clear. Patient was having productive cough now is not having a productive cough. Patient states when he was productive it was yellowish- green. Continue Levaquin. Patient still not having productive cough. Will discontinue mucomyst. Continue with nebs, inhaled steroids, systemic steroids and Singulair. (4) Tobacco abuse Is this a current diagnosis for this admission?: Yes Plan: Counseled on tobacco cessation. Nicotine patch ordered. (5) Anxiety Is this a current diagnosis for this admission?: Yes Plan: Xanax discontinued and patient started on ativan. Psychology recommend buspar 5mg po bid which was started. - Time Time Spent with patient: 15-24 minutes Anticipated discharge: Home Within: within 72 hours - Inpatient Certification Medical Necessity: Need for Nebulizer Therapy and Monitoring of Response
--- NOTE | 2017-11-20 18:43 | PDOC PROGRESS REPORT ---
Subjective Progress Note for:: 11/19/17 Subjective:: She presented with COPD exacerbation. Patient is feeling better. She did not like the buspar stating that it made her jittery. Reason For Visit: COPD EXACERBATION,TOBACCO USE,HYPOXIA Physical Exam Vital Signs: Temp Pulse Resp BP Pulse Ox 97.1 F 87 16 142/69 H 94 11/19/17 19:17 11/19/17 20:30 11/19/17 20:30 11/19/17 19:17 11/19/17 20:30 Intake & Output 11/18/17 11/19/17 11/20/17 06:59 06:59 06:59 Intake Total 1179 1349 686 Output Total 700 300 Balance 479 1049 686 Weight 51.5 kg 51.5 kg General appearance: PRESENT: no acute distress, thin, well-developed, well- nourished Head exam: PRESENT: normocephalic Eye exam: PRESENT: EOMI. ABSENT: scleral icterus Mouth exam: PRESENT: moist Neck exam: ABSENT: carotid bruit, JVD, lymphadenopathy, thyromegaly Respiratory exam: PRESENT: other - course breathe sounds. ABSENT: rales, rhonchi, wheezes Cardiovascular exam: PRESENT: RRR. ABSENT: diastolic murmur, rubs, systolic murmur GI/Abdominal exam: PRESENT: normal bowel sounds, soft. ABSENT: distended, guarding, mass, organolmegaly, rebound, tenderness Rectal exam: PRESENT: deferred Extremities exam: PRESENT: full ROM. ABSENT: calf tenderness, clubbing, pedal edema Neurological exam: PRESENT: alert, awake, oriented to person, oriented to place , oriented to time, oriented to situation, CN II-XII grossly intact. ABSENT: motor sensory deficit Psychiatric exam: PRESENT: appropriate affect, normal mood. ABSENT: homicidal ideation, suicidal ideation Skin exam: PRESENT: dry, intact, warm. ABSENT: cyanosis, rash Results Laboratory Results: 11/19/17 07:53 11/19/17 07:53 Sodium 139.5 Potassium 4.5 Chloride 96 L Carbon Dioxide 36 H Anion Gap 8 BUN 22 H Creatinine 0.56 Est GFR ( Amer) > 60 Est GFR (Non-Af Amer) > 60 Glucose 102 Calcium 10.1 Magnesium 2.2 Impressions: Chest X-Ray 11/16/17 16:36 IMPRESSION: Overexpansion of the lung [place]. No developing infiltrates. Assessment & Plan - Diagnosis (1) Acute respiratory failure with hypoxia Is this a current diagnosis for this admission?: Yes Plan: Due to acute bronchitis with COPD exacerbation. Continue supplemental oxygen. Wean as tolerated. (2) COPD exacerbation Is this a current diagnosis for this admission?: Yes Plan: COPD exacerbation due to acute bronchitis. Continue bronchodilators, inhaled steroids,systemic steroids and antibiotics. (3) Acute exacerbation of chronic bronchitis Is this a current diagnosis for this admission?: Yes Plan: Chest x-ray clear. Patient was having productive cough now is not having a productive cough. Continue Levaquin. Continue with nebs, inhaled steroids, systemic steroids and Singulair. (4) Tobacco abuse Is this a current diagnosis for this admission?: Yes Plan: Counseled on tobacco cessation. Nicotine patch placed. (5) Anxiety Is this a current diagnosis for this admission?: Yes Plan: Continue prn ativan. Discontinue buspar because patient did not like it stating that it made her feel strange. - Time Time Spent with patient: Less than 15 minutes Anticipated discharge: Home Within: within 72 hours - Inpatient Certification Medical Necessity: Need for Nebulizer Therapy and Monitoring of Response
--- NOTE | 2017-11-20 18:47 | PDOC PROGRESS REPORT ---
Subjective Progress Note for:: 11/20/17 Subjective:: She presented with COPD exacerbation. Patient is feeling better. Patient states that she went for a walk and maintained sats of 91% on 1L. Patient states she feels much better and hopes she can leave tomorrow. Reason For Visit: COPD EXACERBATION,TOBACCO USE,HYPOXIA Physical Exam Vital Signs: Temp Pulse Resp BP Pulse Ox 97.2 F 102 H 16 122/66 96 11/20/17 15:02 11/20/17 16:16 11/20/17 16:16 11/20/17 15:02 11/20/17 15:02 Intake & Output 11/19/17 11/20/17 11/21/17 06:59 06:59 06:59 Intake Total 1349 931 852 Output Total 977 529 4442 Balance 1049 581 -173 Weight 51.5 kg 51.6 kg General appearance: PRESENT: no acute distress, thin, well-developed, well- nourished Eye exam: PRESENT: EOMI. ABSENT: scleral icterus Mouth exam: PRESENT: moist Neck exam: ABSENT: carotid bruit, JVD, lymphadenopathy, thyromegaly Respiratory exam: PRESENT: clear to auscultation zen, decreased breath sounds. ABSENT: rales, rhonchi, wheezes Cardiovascular exam: PRESENT: RRR. ABSENT: diastolic murmur, rubs, systolic murmur GI/Abdominal exam: PRESENT: normal bowel sounds, soft. ABSENT: distended, guarding, mass, organolmegaly, rebound, tenderness Rectal exam: PRESENT: deferred Extremities exam: PRESENT: full ROM. ABSENT: calf tenderness, clubbing, pedal edema Neurological exam: PRESENT: alert, awake, oriented to person, oriented to place , oriented to time, oriented to situation, CN II-XII grossly intact. ABSENT: motor sensory deficit Psychiatric exam: PRESENT: appropriate affect, normal mood. ABSENT: homicidal ideation, suicidal ideation Skin exam: PRESENT: dry, intact, warm. ABSENT: cyanosis, rash Results Laboratory Results: 11/19/17 07:53 Impressions: Chest X-Ray 11/16/17 16:36 IMPRESSION: Overexpansion of the lung [place]. No developing infiltrates. Assessment & Plan - Diagnosis (1) Acute respiratory failure with hypoxia Is this a current diagnosis for this admission?: Yes Plan: Due to acute bronchitis with COPD exacerbation. Continue supplemental oxygen. Wean as tolerated. Patient maintain sats of 91% on 1L while ambulating. Will ask nurse to wean oxygen as she is back on 2.5L. (2) COPD exacerbation Is this a current diagnosis for this admission?: Yes Plan: COPD exacerbation due to acute bronchitis. Continue bronchodilators, inhaled steroids,systemic steroids and antibiotics. (3) Acute exacerbation of chronic bronchitis Is this a current diagnosis for this admission?: Yes Plan: Chest x-ray clear. Patient was having productive cough now is not having a productive cough. Continue Levaquin. Continue with nebs, inhaled steroids, systemic steroids and Singulair. Have been weaning steroids. (4) Tobacco abuse Is this a current diagnosis for this admission?: Yes Plan: Counseled on tobacco cessation. Nicotine patch placed. (5) Anxiety Is this a current diagnosis for this admission?: Yes Plan: Continue prn ativan. Discontinue buspar because patient did not like it stating that it made her feel strange. - Time Time Spent with patient: Less than 15 minutes Within: within 24 hours
[2017-11-20] MEDS: MONTELUKAST SODIUM 10 MG TABLET PO SCH (21:11)
[2017-11-21] MEDS: LEVALBUTEROL HCL NEB 1.25 MG/3 ML AMPUL NEB SCH ×3 (00:38→08:04)
[2017-11-21] MEDS: SODIUM CHLORIDE NASAL SPRAY 44 ML NASL SCH ×2 (01:35→07:43)
[2017-11-21] MEDS: LANSOPRAZOLE 30 MG TAB.RAP.DR PO SCH (05:24)
[2017-11-21] MEDS: METHYLPREDNISOLONE INJ 40 MG/1 ML SDV IV SCH (05:24)
[2017-11-21] MEDS: BUDESONIDE NEB 0.5 MG/2 ML AMPUL NEB SCH (08:04)
[2017-11-21] MEDS: ENOXAPARIN SODIUM INJ 40 MG/0.4 ML DISP.SYRIN SUBCUT SCH (09:28)
[2017-11-21] MEDS: LEVOFLOXACIN 750 MG TABLET PO SCH (09:29)
[2017-11-21] MEDS: DOCUSATE SODIUM 100 MG CAPSULE PO SCH (09:29)
[2017-11-21] MEDS: GUAIFENESIN 600 MG TABLET.SA PO SCH (09:29)
[2017-11-21] MEDS: MULTIVITAMIN TABLET PO SCH (09:29)
[2017-11-21] MEDS: MUPIROCIN 2% OINTMENT 22 GM TP SCH (09:30)
[2017-11-21] MEDS: FLUTICASONE NASAL SPRAY 50 MCG/SPRY 120 SPRAY/16 GM NASL SCH (09:30)
[2017-11-21 09:43] VITALS: BP 131/75
[2017-11-21] MEDS ORDERED: PREDNISONE 20 MG TABLET PO SCH (10:00)
--- NOTE | 2017-11-21 20:36 | PDOC DISCHARGE SUMMARY ---
General - Admit/Disc Date/PCP Admission Date/Primary Care Provider: 11/16/17 18:03 ILSA RAMIREZ MD Discharge Date: 11/21/17 - Discharge Diagnosis (1) Acute respiratory failure with hypoxia Is this a current diagnosis for this admission?: Yes (2) COPD exacerbation Is this a current diagnosis for this admission?: Yes (3) Acute exacerbation of chronic bronchitis Is this a current diagnosis for this admission?: Yes (4) Tobacco abuse Is this a current diagnosis for this admission?: Yes (5) Anxiety Is this a current diagnosis for this admission?: Yes - Additional Information Resuscitation Status: Full Code Discharge Diet: As Tolerated Discharge Activity: Activity As Tolerated Prescriptions: Buspirone HCl [Buspar 5 mg Tablet] 1 tab PO QHS #30 tab Methylprednisolone [Medrol Dosepack (4 mg/Tab) 21 Tab/Dosepak] 4 mg PO ASDIR # 21 tab.ds.pk Home Medications: Albuterol Sulfate [Proair HFA] 2 puff IH Q4HP PRN 11/16/17 Fluticasone/Salmeterol [Advair 250-50 Diskus 14 Dose/Diskus] 2 puff IH DAILY 06/26 Multivitamin [Multivitamins] 1 tab PO DAILY 11/16/17 Buspirone HCl [Buspar 5 mg Tablet] 1 tab PO QHS #30 tab 11/21/17 Methylprednisolone [Medrol Dosepack (4 mg/Tab) 21 Tab/Dosepak] 4 mg PO ASDIR # 21 tab.ds.pk 11/21/17 History of Present Illness History of Present Illness: JANETH VINSON is a 67 year old female history of COPD, depression and tobacco use. She states that she has been gradually becoming more short of breath over the last week. Patient states that she noticed when the temperature dropped. Patient states she does not have any fever or chills. Patient did have a productive cough but is no longer productive. It was productive she was producing yellowish sputum. Patient was being evaluated at her PCP office when she was noted to be hypoxic in the high 70s. She does not wear supplemental oxygen at home. They gave her 2 breathing treatments however she continued to be hypoxic. Is instructed to come to the emergency department. In the ED patient was noted to be hypoxic at 75%. Patient was given 3 breathing treatments and started on 2 L oxygen along with 125 mg of IV Solu- Medrol after which her sats are now 95%. Patient would desat when the oxygen was removed. There was no finding on chest x-ray. Hospitalist was called to admit patient for COPD exacerbation with hypoxia. P General H&P was dictated by myself Dr. Patti Cheek. Please refer to it for complete details. Hospital Course Hospital Course: Patient with a history of COPD however continues to smoke was sent here by her PCP for hypoxic respiratory failure due to acute bronchitis resulting in a COPD exacerbation. Patient was started on Solu-Medrol, Levaquin, given magnesium, aggressive neb treatment. Patient did not tolerate Mucomyst therefore was discontinued stating that it caused her to have spasms. Patient showed gradual improvement and was not wheezing today. Patient was satting 97% on room air at rest. Patient could ambulate without any distress or shortness of breath. Patient did complete her 5 days of Levaquin in the hospital. Patient was weaned to p.o. steroids and then discharged on a Solu-Medrol Dosepak. Patient advised to stop smoking. Patient does have a history of anxiety that was untreated. Patient evaluated by psychology who recommended BuSpar 5 mg twice daily. Patient stated she did not like the medication however did requested on discharge. Patient advised to take BuSpar 5 mg nightly. Physical Exam Vital Signs: Temp Pulse Resp BP Pulse Ox 97.8 F 98 24 H 131/75 H 94 11/21/17 09:38 11/21/17 09:38 11/21/17 09:38 11/21/17 09:38 11/21/17 09:38 Intake & Output 11/20/17 11/21/17 11/22/17 06:59 06:59 06:59 Intake Total 931 1100 Output Total 350 1325 Balance 581 -225 Weight 51.6 kg 51.6 kg General appearance: PRESENT: no acute distress, thin, well-developed, well- nourished Head exam: PRESENT: normocephalic Eye exam: PRESENT: conjunctiva pink, EOMI, PERRLA. ABSENT: scleral icterus Ear exam: PRESENT: normal external ear exam Mouth exam: PRESENT: moist, tongue midline Neck exam: ABSENT: carotid bruit, JVD, lymphadenopathy, thyromegaly Respiratory exam: PRESENT: clear to auscultation zen, decreased breath sounds. ABSENT: rales, rhonchi, wheezes Cardiovascular exam: PRESENT: RRR. ABSENT: diastolic murmur, rubs, systolic murmur Pulses: PRESENT: normal dorsalis pedis pul Vascular exam: PRESENT: normal capillary refill GI/Abdominal exam: PRESENT: normal bowel sounds, soft. ABSENT: distended, guarding, mass, organolmegaly, rebound, tenderness Rectal exam: PRESENT: deferred Extremities exam: PRESENT: full ROM. ABSENT: calf tenderness, clubbing, pedal edema Neurological exam: PRESENT: alert, awake, oriented to person, oriented to place , oriented to time, oriented to situation, CN II-XII grossly intact. ABSENT: motor sensory deficit Psychiatric exam: PRESENT: appropriate affect, normal mood. ABSENT: homicidal ideation, suicidal ideation Skin exam: PRESENT: dry, intact, warm. ABSENT: cyanosis, rash Results Laboratory Results: 11/19/17 07:53 Impressions: Chest X-Ray 11/16/17 16:36 IMPRESSION: Overexpansion of the lung [place]. No developing infiltrates. Qualifiers PATEINT BEING DISCHARGED WITH ANY OF THE FOLLOWING DIAGNOSIS?: No Plan Time Spent: Greater than 30 Minutes
== END 2017-11-21 10:26 | disposition home or self-care (01) | DRG 189 ==
LOC: ER 16:16 → EH 18:03 → 4S 19:30
PROVIDERS: ADMIT Internal Medicine; ATTEND Internal Medicine
DX: J96.01 Acute respiratory failure with hypoxia (principal); J44.1 Chronic obstructive pulmonary disease with (acute) exacerbation; J44.0 Chronic obstructive pulmonary disease with (acute) lower respiratory infection; J20.9 Acute bronchitis, unspecified; Z79.899 Other long term (current) drug therapy; F17.200 Nicotine dependence, unspecified, uncomplicated; Z88.0 Allergy status to penicillin; Z88.2 Allergy status to sulfonamides; Z88.1 Allergy status to other antibiotic agents; Z88.8 Allergy status to other drugs, medicaments and biological substances
CPT/HCPCS: 36415; 71045; 80048; 80053; 82550; 82553; 83735; 83880; 84484; 85025; 93005; 93010; 94640; 94667; 94799; 96374; 99291; 99406; J1650; J1956; J2920; J2930; J3475; J3490; J7030; J7512; J7620

== ENCOUNTER → 2018-08-23 | Outpatient (CLI) | payer MEDICARE ==
--- NOTE | 2018-08-23 14:17 | RADIOLOGY REPORT (SQ) ---
EXAM DESCRIPTION: CT LUNG CANCER SCREENING COMPLETED DATE/TIME: 08/23/2018 12:47 pm REASON FOR STUDY: Z87.891 PERSONAL HISTORY OF NICOTINE DEPENDENCE Z72.0 TOBACCO USE Z72.0 TOBACCO U SE Z87.891 PERSONAL HISTORY OF NICOTINE DEPENDENCE Has the patient had a Chest CT scan within the past year? No Was the patient offered tobacco cessation counseling? Yes Was the patient engaged in shared decision making for this test? Yes Does the patient have signs or symptoms of Lung Cancer? No Is the patient a smoker? Yes How many packs per year? 365 How many years since quitting smoking? Not applicable Patients age: 68 COMPARISON: 02/27/2013 TECHNIQUE: Low Dose CT scan performed of the chest without intravenous contrast for purposes of scre ening for lung cancer. Images reviewed with lung, soft tissue and bone windows. Reconstructed coron al and sagittal MPR images reviewed. All images stored on PACS. All CT scanners at this facility use dose modulation, iterative reconstruction, and/or weight based d osing when appropriate to reduce radiation dose to as low as reasonably achievable (ALARA). [facility]: Dose Right [facility]: CareDose [facility]: Dose Right [facility]: Teradose 4D [facility]: [employer] RADIATION DOSE: CT Rad equipment meets quality standard of care and radiation dose reduction techniq ues were employed. CTDIvol: 1.9 mGy. DLP: 71 mGy-cm. mGy. . LIMITATIONS: No technical limitations. FINDINGS: LUNG NODULES: Pleural-based smooth nodule, 8 x 5 mm in size, right posterior lower lobe a xial image 302/41. Pleural-based smooth nodule, 6 x 4 mm in size, left posterior lower lobe axial image 335/481. REMAINING LUNGS AND PLEURA: No pleural effusions or calcifications. No pneumothorax. Diffuse ad vanced changes of obstructive lung disease with enlarged centrilobular airspaces and hyperinflation w ith flattening in the hemidiaphragms. HILAR AND MEDIASTINAL STRUCTURES: No identified masses. No abnormal nodes. HEART AND VASCULAR STRUCTURES: Ascending thoracic aorta is 4.3 cm in diameter, correlate clinically f or aortic insufficiency or aortic stenosis. No cardiac devices. CORONARY ARTERY CALCIFICATIONS: No significant calcifications. UPPER ABDOMEN, THYROID, BONES, OTHER SOFT TISSUES: Large retrocardiac hiatal hernia IMPRESSION: PROBABLY BENIGN FINDINGS IN THE LUNGS. Obstructive lung disease. LUNGRADS: LUNGRADS: 3, PROBABLY BENIGN. PROBABLY BENIGN FINDING(S)- SHORT TERM FOLLOW UP SUGGESTED; INCLUDES NODULES WITH A LOW LIKELIHOOD OF BECOMING A CLINICALLY ACTIVE CANCER. MODIFIER: NONE. RECOMMENDATION: Followup LDCT in 6 months. COMMENT: CRITERIA: Solid nodule(s): ? 6 mm to < 8 mm at baseline OR new 4 mm to < 6 mm. Part solid nodule(s): ? 6 mm total diameter with solid component < 6 mm OR new < 6 mm total diameter . Non solid nodule(s) (GGN): ? [address] or new. TECHNICAL DOCUMENTATION: JOB ID: [id number] Quality ID # [id number]: Final reports with documentation of one or more dose reduction techniques (e.g., Au tomated exposure control, adjustment of the mA and/or kV according to patient size, use of iterative reconstruction technique) 2010 [facility] Reading location - IP/workstation name: [email or web address]
== END ==
LOC: RAD 13:34
PROVIDERS: ATTEND Physician Assistant
DX: Z87.891 Personal history of nicotine dependence (principal)
CPT/HCPCS: G0297

== ENCOUNTER 2018-09-06 08:35 | Emergency (ER) | payer MEDICARE ==
--- NOTE | 2018-09-06 08:51 | ER Document Report ---
ED GI/ - General Information source: Patient TRAVEL OUTSIDE OF THE [place] IN LAST 30 DAYS: No <NYDIA COLORADO - Last Filed: 09/06/18 10:07> <SHELBY KEY - Last Filed: 09/06/18 11:05> - General Chief Complaint: Possible Kidney Stone Stated Complaint: FLANK PAIN Time Seen by Provider: 09/06/18 08:45 Notes: 68-year-old female that was sent in by an urgent care for hematuria and back pain. Patient states she initially began having back pain a few weeks ago, it subsided, then started again 4 days ago. 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 Patient states she intermittently has seen blood in her urine since this pain began. (NYDIA COLORADO) - Related Data Allergies/Adverse Reactions: morphine Allergy (Verified 09/06/18 08:36) Penicillins Allergy (Verified 09/06/18 08:36) Sulfa (Sulfonamide Antibiotics) Allergy (Verified 09/06/18 08:36) Tetracyclines Allergy (Verified 09/06/18 08:36) Past Medical History - General Information source: Patient - Social History Smoking Status: Current Every Day Smoker Cigarette use (# per day): Yes - 1 1/2 ppd Family History: COPD Pulmonary Medical History: Reports: Hx COPD Psychiatric Medical History: Reports: Hx Depression Past Surgical History: Reports: Hx Appendectomy, Hx Cholecystectomy, Hx Herniorrhaphy, Hx Tonsillectomy, Other - Partial Hysterectomy - Immunizations Hx Diphtheria, Pertussis, Tetanus Vaccination: Yes <NYDIA COLORADO - Last Filed: 09/06/18 10:07> Review of Systems - Review of Systems Constitutional: No symptoms reported EENT: No symptoms reported Cardiovascular: No symptoms reported Respiratory: No symptoms reported Gastrointestinal: No symptoms reported Genitourinary: See HPI, Hematuria Female Genitourinary: No symptoms reported Musculoskeletal: See HPI, Back pain Skin: No symptoms reported Hematologic/Lymphatic: No symptoms reported Neurological/Psychological: No symptoms reported -: Yes All other systems reviewed and negative <NYDIA COLORADO - Last Filed: 09/06/18 10:07> Physical Exam <NYDIA COLORADO - Last Filed: 09/06/18 10:07> <SHELBY KEY - Last Filed: 09/06/18 11:05> - Vital signs Vitals: Temp Pulse Resp BP Pulse Ox 97.6 F 100 16 153/79 H 96 09/06/18 08:39 09/06/18 08:39 09/06/18 08:39 09/06/18 08:39 09/06/18 08:39 - Notes Notes: Physical Exam: General: Alert, appears well. HEENT: Normocephalic. Atraumatic. PERRL. Extraocular movements intact. Oropharynx clear. Neck: Supple. Non-tender. Respiratory: No respiratory distress. Inspiratory and expiratory wheezing bilaterally. Cardiovascular: Regular rate and rhythm. Abdominal: Normal Inspection. Non-tender. No distension. Normal Bowel Sounds. Back: Left lumbar musculature tenderness to palpation. Left lower flank muscles are tender with palpation.. No deformity or step off. Extremities: Moves all four extremities. Upper extremities: Normal inspection. Normal ROM. Lower extremities: Normal inspection. No edema. Normal ROM. Neurological: Normal cognition. AAOx4. Normal speech. Psychological: Normal affect. Normal Mood. Skin: Warm. Dry. Normal color. (NYDIA COLORADO) Course <NYDIA COLORADO - Last Filed: 09/06/18 10:07> - Diagnostic Test Radiology reviewed: Image reviewed, Reports reviewed - CT scan is unremarkable showing only small ventral hernia and small umbilical hernia. <SHELBY KEY - Last Filed: 09/06/18 11:05> - Re-evaluation Re-evalutation: 09/06/18 11:03 The urine does not suggest an infection, but there is some blood in it. A urine culture will be done. CT scan to look for renal stones or other pathology as a cause for the flank pain did not show any abnormalities that would cause her discomfort. The physical exam was consistent with lumbar back muscle strain. (SHELBY KEY) - Vital Signs Vital signs: Temp Pulse Resp BP Pulse Ox 97.6 F 100 16 153/79 H 96 09/06/18 08:39 09/06/18 08:39 09/06/18 08:39 09/06/18 08:39 09/06/18 08:39 - Laboratory Laboratory results interpreted by me: 09/06/18 09:10 Urine Blood SMALL H Ur Leukocyte Esterase TRACE H Discharge <NYDIA COLORADO - Last Filed: 09/06/18 10:07> <YESISHELBY Mckeon - Last Filed: 09/06/18 11:05> - Discharge Clinical Impression: Lumbar back sprain Qualifiers: Encounter type: initial encounter Qualified Code(s): S33.5XXA - Sprain of ligaments of lumbar spine, initial encounter Condition: Stable Disposition: HOME, SELF-CARE Additional Instructions: Low Back Pain Three out of every four people will have an episode of disabling back pain during their lifetime. Most commonly the pain is due to straining of the muscles and ligaments in the low back. Usual treatment includes: (1) Rest on a firm surface. Avoid lying on your stomach. (2) Ice pack the painful area. After a few days, gentle heat may be used intermittently to relax the area, or ice packs can be continued. (3) Medication may be needed -- muscle relaxers and antiinflammatory medicines are commonly used. (4) As the back improves, exercises are prescribed to strengthen the back and abdominal muscles. Your doctor will advise you on the proper care for your back at each stage in your recovery. You may be better in a few days -- or healing may take several weeks. If new symptoms of a "herniated disc" (radiation of pain, numbness, or tingling down the back of the leg or weakness in the leg) occur, you should be re-examined. Further testing may be necessary. Take the muscle relaxer as prescribed, when the possible drowsy side effect will not be a problem. Take 2 Aleve every 12 hours, or 600 mg of ibuprofen every 8 hours. Try to limit activity that makes the pain worse. Follow-up with your doctor this week if not improving. RETURN TO THE EMERGENCY ROOM IF ANY NEW OR WORSENING SYMPTOMS. Prescriptions: Cyclobenzaprine HCl [Flexeril 5 mg Tablet] 5 mg PO TID PRN #15 tablet PRN Reason: Forms: Return to Work Referrals: ZENA CAMARILLO PA-C [Primary Care Provider] - Follow up as needed Scribe Attestation: 09/06/18 09:51 I personally performed the services described in the documentation, reviewed and edited the documentation which was dictated to the scribe in my presence, and it accurately records my words and actions. (SHELBY KEY) Scribe Documentation - Scribe Written by Yamilee:: Vince Koch, 09/06/2018 [id number] acting as scribe for :: Yesi <NYDIA COLORADO - Last Filed: 09/06/18 10:07>
[2018-09-06] MEDS ORDERED: IPRATROPIUM/ALBUTEROL 0.5-2.5 MG/3 ML AMPUL NEB ONE (09:19)
[2018-09-06 09:33] LABS: APPEARANCE,URINE SLIGHTLY-CLOUDY; BILIRUBIN,URINE NEGATIVE (NEGATIVE); COLOR,URINE YELLOW; GLUCOSE, URINE NEGATIVE (NEGATIVE); KETONES,URINE NEGATIVE (NEGATIVE); LEUKOCYTE ESTERASE,URINE TRACE (NEGATIVE); NITRITE,URINE NEGATIVE (NEGATIVE); PROTEIN,URINE NEGATIVE (NEGATIVE); URINE SPECIFIC GRAVITY 1.018; UROBILINOGEN,URINE NEGATIVE mg/dL (<2.0)
--- NOTE | 2018-09-06 10:44 | RADIOLOGY REPORT (SQ) ---
EXAM DESCRIPTION: CT LTD RENAL STONE PROTOCOL ON COMPLETED DATE/TIME: 09/06/2018 9:59 am REASON FOR STUDY: Left flank pain COMPARISON: None. TECHNIQUE: CT scan of the abdomen and pelvis performed without intravenous or oral contrast. Images reviewed with lung, soft tissue, and bone windows. Reconstructed coronal and sagittal MPR images revi ewed. All images stored on PACS. All CT scanners at this facility use dose modulation, iterative reconstruction, and/or weight based d osing when appropriate to reduce radiation dose to as low as reasonably achievable (ALARA). [facility]: Dose Right [facility]: CareDose [facility]: Dose Right [facility]: Teradose 4D [facility]: [employer] RADIATION DOSE: CT Rad equipment meets quality standard of care and radiation dose reduction techniq ues were employed. CTDIvol: 5.1 mGy. DLP: 240 mGy-cm.mGy. LIMITATIONS: None. FINDINGS: LOWER CHEST No nodules or infiltrates. Moderate size hiatal hernia is identified. NON-CONTRASTED LIVER, SPLEEN, ADRENALS: Evaluation limited by lack of IV contrast. No identified sign ificant masses. PANCREAS: No masses. No peripancreatic inflammatory changes. GALLBLADDER: Status post cholecystectomy RIGHT KIDNEY AND URETER: No suspicious masses. Assessment limited by lack of IV contrast. No signif icant calcifications. No hydronephrosis or hydroureter. LEFT KIDNEY AND URETER: No suspicious masses. Assessment limited by lack of IV contrast. No signifi cant calcifications. No hydronephrosis or hydroureter. AORTA AND RETROPERITONEUM: No aneurysm. Extensive vascular calcifications are identified in the abdo awilda aorta and iliac vessels. No retroperitoneal masses or adenopathy. BOWEL AND PERITONEAL CAVITY: No obvious masses or inflammatory changes. No free fluid. APPENDIX: Status post appendectomy PELVIS, BLADDER, AND ABDOMINAL WALL:No abnormal masses. No free fluid. Bladder normal. Small ventral hernia containing fat is identified in the midline in the upper abdomen. Small umbilical hernia con taining fat is identified. BONES: No significant findings. OTHER: No other significant finding. IMPRESSION: Small ventral hernia and small umbilical hernia containing fat as noted above. No other significant intra-abdominal or pelvic abnormalities were identified. Other findings as noted above. COMMENT: Quality ID # [id number]: Final reports with documentation of one or more dose reduction techniques (e.g., Automated exposure control, adjustment of the mA and/or kV according to patient size, use of iterative reconstruction technique) TECHNICAL DOCUMENTATION: JOB ID: [id number] [employer]- All Rights Reserved Reading location - IP/workstation name: [email or web address]
[2018-09-06 11:30] VITALS: BP 134/87
== END 2018-09-06 11:42 | disposition home or self-care (01) ==
LOC: ER 08:35
DX: S33.5XXA Sprain of ligaments of lumbar spine, initial encounter (principal); X58.XXXA Exposure to other specified factors, initial encounter; R31.0 Gross hematuria; K43.9 Ventral hernia without obstruction or gangrene; K42.9 Umbilical hernia without obstruction or gangrene; F17.210 Nicotine dependence, cigarettes, uncomplicated; J44.9 Chronic obstructive pulmonary disease, unspecified; Z88.5 Allergy status to narcotic agent; Z88.0 Allergy status to penicillin; Z88.2 Allergy status to sulfonamides; Z88.1 Allergy status to other antibiotic agents
CPT/HCPCS: 94640; 99284; 87086; 81001; 76380; A9270; J7620

== ENCOUNTER → 2019-06-22 | Outpatient (CLI) | payer MEDICARE, OTHER ==
--- NOTE | 2019-06-22 10:43 | RADIOLOGY REPORT (SQ) ---
EXAM DESCRIPTION: CHEST 2 VIEWS COMPLETED DATE/TIME: 06/22/2019 10:04 am REASON FOR STUDY: CHRONIC OBSTRUCTIVE PULMONARY DISEASE W (ACUTE) EXACERBATION COMPARISON: None. EXAM PARAMETERS: NUMBER OF VIEWS: two views TECHNIQUE: Digital Frontal and Lateral radiographic views of the chest acquired. RADIATION DOSE: NA LIMITATIONS: none FINDINGS: LUNGS AND PLEURA: Stable interstitial changes without focal consolidation, pleural effusio n or pneumothorax. Emphysematous change with hyperinflation and flattening of the hemidiaphragms. MEDIASTINUM AND HILAR STRUCTURES: No masses or contour abnormalities. HEART AND VASCULAR STRUCTURES: Normal heart size. Aortic atherosclerosis. BONES: No acute findings. HARDWARE: None in the chest. OTHER: No other significant finding. IMPRESSION: Emphysematous change without evidence of acute cardiopulmonary process. TECHNICAL DOCUMENTATION: JOB ID: [id number] [employer]- All Rights Reserved Reading location - IP/workstation name: [email or web address]
== END ==
LOC: RAD 09:40
PROVIDERS: ATTEND Nurse Practitioner Primary Care
DX: J44.1 Chronic obstructive pulmonary disease with (acute) exacerbation (principal)
CPT/HCPCS: 71046

== ENCOUNTER 2019-10-20 08:44 | Observation (INO) | payer MEDICARE, OTHER ==
[2019-10-20] MEDS ORDERED: IPRATROPIUM/ALBUTEROL 0.5-2.5 MG/3 ML AMPUL NEB ONE ×2 (09:38→13:06)
[2019-10-20] MEDS ORDERED: METHYLPREDNISOLONE INJ 125 MG/2 ML SDV IV ONE (10:09)
[2019-10-20] MEDS ORDERED: ALBUTEROL SULFATE 0.083% NEB 2.5 MG/3 ML AMPUL NEB ONE ×2 (10:10→11:40)
[2019-10-20] MEDS ORDERED: NORMAL SALINE 1000 ML 1,000 ML IV ONE (10:10)
[2019-10-20] MEDS: MAGNESIUM SULFATE/D5W 1 GM/100 ML RTUPB IV SCH ×2 (10:23→11:18)
[2019-10-20 10:44] LABS: ABSOLUTE BASOPHILS # (AUTO) 0.1 10^3/uL (0.0-0.2); ABSOLUTE MONOCYTES (AUTO) 1.3 10^3/uL (0.1-1.4); ABSOLUTE NEUT (AUTO) 10.2 10^3/uL (1.7-8.2); BASOPHILS % (AUTO) 0.6 % (0-2); EOSINOPHILS % (AUTO) 0.1 % (0-6); HEMATOCRIT 40.8 % (36.0-47.0); HEMOGLOBIN 13.8 g/dL (12.0-15.5); LYMPHOCYTES % (AUTO) 7.6 % (13-45); MEAN CORPUSCULAR HEMOGLOBIN 29.7 pg (27.0-33.4); MEAN CORPUSCULAR HGB CONC 33.7 g/dL (32.0-36.0); MEAN CORPUSCULAR VOLUME 88 fl (80-97); MONOCYTES % (AUTO) 10.7 % (3-13); PLATELET COUNT 336 10^3/uL (150-450); RED BLOOD COUNT 4.63 10^6/uL (3.72-5.28); RED CELL DISTRIBUTION WIDTH 13.2 % (11.5-14.0); TOTAL CELLS COUNTED % (AUTO) 100 %; WHITE BLOOD COUNT 12.6 10^3/uL (4.0-10.5)
--- NOTE | 2019-10-20 10:53 | ER Document Report ---
Entered by JELENA ALLAN SCRIBE 10/20/19 1008 Acting as scribe for:SHELBY KEY MD ED General - General Chief Complaint: Breathing Difficulty Stated Complaint: DIFFICULTY BREATHING/CONGESTION Time Seen by Provider: 10/20/19 10:03 Mode of Arrival: Medic Information source: Patient Notes: This 69 year old female patient with a history of COPD presents to the ED with complaints of dyspnea and an associated productive cough for the past x3 days. Patient states that she brings up thick, white phlegm when she coughs. Patient reports that she uses an inhaler and a nebulizer (x4/day normally); however, since onset of her symptoms, she has being using the nebulizer x6-8/day. Patient notes that she is not on O2 at home and is currently 92 O2 Sat with a nasal can nula in the ED. TRAVEL OUTSIDE OF THE [place] IN LAST 30 DAYS: No - Related Data Allergies/Adverse Reactions: morphine Allergy (Verified 10/20/19 09:10) Penicillins Allergy (Verified 10/20/19 09:10) Sulfa (Sulfonamide Antibiotics) Allergy (Verified 10/20/19 09:10) Tetracyclines Allergy (Verified 10/20/19 09:10) Home Medications: Albuterol and symbicort med rec completed in computer Past Medical History - General Information source: Patient, [facility] Records - Social History Smoking Status: Current Every Day Smoker Cigarette use (# per day): Yes - 2 ppd Chew tobacco use (# tins/day): No Frequency of alcohol use: None Drug Abuse: None Family History: COPD Patient has suicidal ideation: No Patient has homicidal ideation: No Pulmonary Medical History: Reports: Hx COPD Psychiatric Medical History: Reports: Hx Depression Past Surgical History: Reports: Hx Appendectomy, Hx Cholecystectomy, Hx Herniorrhaphy, Hx Hysterectomy - partial, Hx Tonsillectomy - Immunizations Hx Diphtheria, Pertussis, Tetanus Vaccination: Yes Review of Systems - Review of Systems Constitutional: No symptoms reported EENT: No symptoms reported Cardiovascular: See HPI, Dyspnea Respiratory: See HPI, Cough - thick, white phlegm production Gastrointestinal: No symptoms reported Genitourinary: No symptoms reported Female Genitourinary: No symptoms reported Musculoskeletal: No symptoms reported Skin: No symptoms reported Hematologic/Lymphatic: No symptoms reported Neurological/Psychological: No symptoms reported -: Yes All other systems reviewed and negative Physical Exam - Vital signs Vitals: Temp Pulse Resp BP Pulse Ox 98.6 F 108 H 24 H 129/75 H 87 L 10/20/19 08:45 10/20/19 08:45 10/20/19 08:45 10/20/19 08:45 10/20/19 08:45 Interpretation: Tachycardic, Tachypneic - General General appearance: Alert - HEENT Head: Normocephalic, Atraumatic Eyes: Normal Pupils: PERRL - Respiratory Respiratory status: Retractions, Tachypnea Chest status: Nontender Breath sounds: Rhonchi, Wheezing Chest palpation: Normal - Cardiovascular Rhythm: Tachycardia Heart sounds: Normal auscultation Murmur: No - Abdominal Inspection: Normal Distension: No distension Bowel sounds: Normal Tenderness: Nontender - abdomen soft Organomegaly: No organomegaly - Back Back: Normal, Nontender - Extremities General upper extremity: Normal inspection General lower extremity: Normal inspection. No: Edema - no peripheral edema - Neurological Neuro grossly intact: Yes - Psychological Associated symptoms: Normal affect, Normal mood - Skin Skin Temperature: Warm Skin Moisture: Dry Skin Color: Normal Course - Vital Signs Vital signs: Temp Pulse Resp BP Pulse Ox 98.0 F 108 H 19 132/87 H 94 10/20/19 12:55 10/20/19 08:45 10/20/19 12:01 10/20/19 12:00 10/20/19 12:01 - Laboratory Result Diagrams: 10/20/19 10:23 10/20/19 10:23 Laboratory results interpreted by me: 10/20/19 10/20/19 10/20/19 10:23 10:23 12:12 WBC 12.6 H Lymph % (Auto) 7.6 L Absolute Neuts (auto) 10.2 H Seg Neutrophils % 81.0 H Carbonic Acid 1.39 H ABG pCO2 46.1 H ABG pO2 59.4 L ABG HCO3 29.7 H ABG Total CO2 31.1 H ABG O2 Saturation 91.2 L Sodium 134.3 L Chloride 89 L Carbon Dioxide 32 H Creatinine 0.48 L Urine Ketones Urine Blood 10/20/19 13:35 WBC Lymph % (Auto) Absolute Neuts (auto) Seg Neutrophils % Carbonic Acid ABG pCO2 ABG pO2 ABG HCO3 ABG Total CO2 ABG O2 Saturation Sodium Chloride Carbon Dioxide Creatinine Urine Ketones 20 H Urine Blood MODERATE H - Diagnostic Test Radiology reviewed: Image reviewed, Reports reviewed - Chest x-ray shows COPD with no acute changes. - EKG Interpretation by Me EKG shows normal: Sinus rhythm, [place], Intervals, QRS Complexes, ST-T Waves Rate: Tachycardia - 100 Rhythm: NSR, APC's - Consults ANGIE Ramirez Time consulted: 13:30 Consulted provider: will come to ER Critical Care Note - Critical Care Note Total time excluding time spent on procedures (mins): 40 Discharge - Discharge Clinical Impression: COPD exacerbation, Acute respiratory failure with hypoxia Condition: Fair Disposition: ADMITTED INPATIENT Admitting Provider: Ruddy (Hospitalist) Unit Admitted: Medical Floor Scribe Attestation: 10/20/19 10:57 I personally performed the services described in the documentation, reviewed and edited the documentation which was dictated to the scribe in my presence, and it accurately records my words and actions. I personally performed the services described in the documentation, reviewed and edited the documentation which was dictated to the scribe in my presence, and it accurately records my words and actions.
[2019-10-20 11:12] LABS: ALBUMIN 3.9 g/dL (3.5-5.0); ALKALINE PHOSPHATASE 104 U/L (38-126); ANION GAP 13 (5-19); ASPARTATE AMINO TRANSFERASE 25 U/L (14-36); BILIRUBIN,DIRECT 0.4 mg/dL (0.0-0.4); BILIRUBIN,TOTAL 0.9 mg/dL (0.2-1.3); BLOOD UREA NITROGEN 14 mg/dL (7-20); CALCIUM 9.3 mg/dL (8.4-10.2); CARBON DIOXIDE 32 mmol/L (22-30); CHLORIDE 89 mmol/L (98-107); CREATINE KINASE 41 U/L (30-135); GLUCOSE 107 mg/dL (75-110); POTASSIUM 3.6 mmol/L (3.6-5.0); TOTAL PROTEIN 7.2 g/dL (6.3-8.2)
--- NOTE | 2019-10-20 11:20 | RADIOLOGY REPORT (SQ) ---
EXAM DESCRIPTION: CHEST SINGLE VIEW COMPLETED DATE/TIME: 10/20/2019 11:09 am REASON FOR STUDY: COPD exacerbation COMPARISON: 06/22/2019. NUMBER OF VIEWS: One view. TECHNIQUE: Single frontal radiographic view of the chest acquired. LIMITATIONS: None. FINDINGS: LUNGS AND PLEURA: Chronic scarring. No opacities, masses or pneumothorax. No pleural effu ariel. Attenuated blood vessels and flattened cher-diaphragms. MEDIASTINUM AND HILAR STRUCTURES: No masses. Contour normal. HEART AND VASCULAR STRUCTURES: Heart normal in size. Normal vasculature. BONES: No acute findings. HARDWARE: None in the chest. OTHER: No other significant finding. IMPRESSION: COPD. NO ACUTE RADIOGRAPHIC FINDING IN THE CHEST. TECHNICAL DOCUMENTATION: JOB ID: [id number] [employer]- All Rights Reserved Reading location - IP/workstation name: [email or web address]
[2019-10-20] MEDS ORDERED: DEXTROSE 5%-LACTATED RINGERS 500 ML IV ONE (11:40)
[2019-10-20 12:28] LABS: ARTERIAL BLOOD BASE EXCESS 4.5 mmol/L; ARTERIAL BLOOD FIO2 24%; ARTERIAL BLOOD H2CO3 1.39 mmol/L (1.05-1.35); ARTERIAL BLOOD HCO3 29.7 mmol/L (20-24); ARTERIAL BLOOD O2 SATURATION 91.2 % (94-98); ARTERIAL BLOOD PCO2 46.1 mmHg (35-45); ARTERIAL BLOOD PH 7.43 (7.35-7.45); ARTERIAL BLOOD PO2 59.4 mmHg (80-100); ARTERIAL BLOOD TOTAL CO2 31.1 mmol/L (21-25)
[2019-10-20 13:53] LABS: APPEARANCE,URINE SLIGHTLY-CLOUDY; BILIRUBIN,URINE NEGATIVE (NEGATIVE); COLOR,URINE YELLOW; GLUCOSE, URINE NEGATIVE (NEGATIVE); KETONES,URINE 20 mg/dL (NEGATIVE); LEUKOCYTE ESTERASE,URINE NEGATIVE (NEGATIVE); NITRITE,URINE NEGATIVE (NEGATIVE); PROTEIN,URINE NEGATIVE (NEGATIVE); URINE SPECIFIC GRAVITY 1.006; UROBILINOGEN,URINE NEGATIVE mg/dL (<2.0)
[2019-10-20] MEDS ORDERED: INFLUENZA QUAD (6MOS+) 2019-20 VAC 0.5 ML SYR IM ONE (14:48)
[2019-10-20] MEDS ORDERED: PROMETHAZINE HCL 25 MG TABLET PO PRN (16:05)
[2019-10-20] MEDS ORDERED: ACETAMINOPHEN 325 MG TABLET PO PRN (16:05)
[2019-10-20] MEDS ORDERED: PROMETHAZINE HCL INJ 25 MG/1 ML VIAL IV PRN (16:05)
[2019-10-20] MEDS ORDERED: MAGNESIUM HYDROXIDE SUSP 30 ML UDCUP PO PRN (16:05)
--- NOTE | 2019-10-20 16:33 | PDOC H&P ---
History of Present Illness Admission Date/PCP: 10/20/19 13:38 TYESHA RAMIREZ, MANAGER KNOWLEDGE-C History of Present Illness: JANETH VINSON is a 69 year old female who states that for 3 to 5 days now her she has been more short of breath than usual. Patient denies using home O2. She states that originally she had a productive cough with white sputum but now she has a nonproductive cough. She denies fever or chills.. She states she is a 2 pack/day smoker and still currently smokes. Patient states that she is known she had COPD for 2 years now. Past Medical History Pulmonary Medical History: Reports: Chronic Obstructive Pulmonary Disease (COPD) Psychiatric Medical History: Reports: Depression Past Surgical History Past Surgical History: Reports: Appendectomy, Cholecystectomy, Herniorrhaphy, Hysterectomy - partial, Tonsillectomy, Other - Partial Hysterectomy Social History Smoking Status: Current Every Day Smoker Electronic Cigarette use?: No Frequency of Alcohol Use: None Hx Recreational Drug Use: No Drugs: None Hx Prescription Drug Abuse: No - Advance Directive Resuscitation Status: Full Code Family History Family History: COPD Parental Family History Reviewed: No Children Family History Reviewed: No Sibling(s) Family History Reviewed.: No Medication/Allergy Home Medications: Albuterol Sulfate [Proair HFA] 2 puff IH Q4HP PRN 11/16/17 Budesonide/Formoterol Fumarate [Symbicort Hfa 160-4.5 Mcg Inhaler 6 gm] 2 puff IH Q12 10/20/19 Hydrochlorothiazide [Hydrodiuril 25 mg Tablet] 25 mg PO DAILY 10/20/19 Rosuvastatin Calcium [Crestor 20 mg Tablet] 20 mg PO QHS 10/20/19 Allergies/Adverse Reactions: morphine Allergy (Verified 10/20/19 09:10) Penicillins Allergy (Verified 10/20/19 09:10) Sulfa (Sulfonamide Antibiotics) Allergy (Verified 10/20/19 09:10) Tetracyclines Allergy (Verified 10/20/19 09:10) Review of Systems Constitutional: PRESENT: weakness. ABSENT: chills, fever(s), headache(s), weight gain, weight loss Cardiovascular: ABSENT: chest pain, dyspnea on exertion, edema, palpitations Respiratory: PRESENT: cough, dyspnea Neurological: ABSENT: abnormal gait, abnormal speech, confusion, dizziness, focal weakness, syncope Psychiatric: ABSENT: anxiety, depression, homidical ideation, suicidal ideation Physical Exam Vital Signs: Temp Pulse Resp BP Pulse Ox 97.6 F 97 26 H 129/67 H 96 10/20/19 14:43 10/20/19 14:43 10/20/19 14:43 10/20/19 14:43 10/20/19 14:43 Intake & Output 10/19/19 10/20/19 10/21/19 06:59 06:59 06:59 Intake Total 1692 Balance 1692 Weight 57.1 kg General appearance: PRESENT: no acute distress, other - sitting up in bed with nasal oxygen talking in full sentences. No respiratory distress Respiratory exam: PRESENT: rhonchi, other Cardiovascular exam: PRESENT: RRR. ABSENT: diastolic murmur, rubs, systolic murmur Neurological exam: PRESENT: alert, awake, oriented to person, oriented to place, oriented to time, oriented to situation, CN II-XII grossly intact. ABSENT: motor sensory deficit Psychiatric exam: PRESENT: appropriate affect, normal mood. ABSENT: homicidal ideation, suicidal ideation Results Laboratory Results: 10/20/19 10:23 10/20/19 10:23 10/20/19 10/20/19 10/20/19 10:23 10:23 12:12 WBC 12.6 H RBC 4.63 Hgb 13.8 Hct 40.8 MCV 88 MCH 29.7 MCHC 33.7 RDW 13.2 Plt Count 336 Seg Neutrophils % 81.0 H Carbonic Acid 1.39 H HCO3/H2CO3 Ratio 21:1 ABG pH 7.43 ABG pCO2 46.1 H ABG pO2 59.4 L ABG HCO3 29.7 H ABG O2 Saturation 91.2 L ABG Base Excess 4.5 FiO2 24% Sodium 134.3 L Potassium 3.6 Chloride 89 L Carbon Dioxide 32 H Anion Gap 13 BUN 14 Creatinine 0.48 L Est GFR ( Amer) > 60 Glucose 107 Calcium 9.3 Total Bilirubin 0.9 AST 25 Alkaline Phosphatase 104 Total Protein 7.2 Albumin 3.9 Urine Color Urine Appearance Urine pH Ur Specific [place] Urine Protein Urine Glucose (UA) Urine Ketones Urine Blood Urine Nitrite Ur Leukocyte Esterase Urine WBC (Auto) Urine RBC (Auto) 10/20/19 13:35 WBC RBC Hgb Hct MCV MCH MCHC RDW Plt Count Seg Neutrophils % Carbonic Acid HCO3/H2CO3 Ratio ABG pH ABG pCO2 ABG pO2 ABG HCO3 ABG O2 Saturation ABG Base Excess FiO2 Sodium Potassium Chloride Carbon Dioxide Anion Gap BUN Creatinine Est GFR ( Amer) Glucose Calcium Total Bilirubin AST Alkaline Phosphatase Total Protein Albumin Urine Color YELLOW Urine Appearance SLIGHTLY-CLOUDY Urine pH 6.0 Ur Specific [place] 1.006 Urine Protein NEGATIVE Urine Glucose (UA) NEGATIVE Urine Ketones 20 H Urine Blood MODERATE H Urine Nitrite NEGATIVE Ur Leukocyte Esterase NEGATIVE Urine WBC (Auto) 3 Urine RBC (Auto) 3 10/20/19 10/20/19 10:23 10:23 Creatine Kinase 41 Troponin I < 0.012 Impressions: Chest X-Ray 10/20/19 10:10 IMPRESSION: COPD. NO ACUTE RADIOGRAPHIC FINDING IN THE CHEST. Assessment and Plan - Diagnosis (1) Acute respiratory failure with hypoxia Is this a current diagnosis for this admission?: Yes (2) COPD exacerbation Is this a current diagnosis for this admission?: Yes (3) Hypoxia Is this a current diagnosis for this admission?: Yes (4) Tobacco abuse Is this a current diagnosis for this admission?: Yes - Plan Summary Summary: 10/20/2019. Patient will be admitted for IV antibiotics, IV steroids, pulmonary toiletry. Patient is medically stable. Patient had a similar admission about 1 year ago for the exact same problem at which time she was in the hospital about 3 days f or that admission. Patient is complaining of being hungry and asking for diet - Time Time Spent with patient: 35 or more minutes
[2019-10-20] MEDS: NORMAL SALINE 1000 ML 1,000 ML IV PRN (16:35)
--- NOTE | 2019-10-20 16:56 | EKG REPORT ---
SEVERITY:- ABNORMAL ECG - SINUS TACHYCARDIA ATRIAL AND VENTRICULAR PREMATURE COMPLEXES : Confirmed by: Hamlet Burger MD 20-Oct-2019 16:56:09
[2019-10-20 17:16] LABS: INTERNATIONAL RATION (INR) 1.01; PROTHROMBIN TIME 13.3 SEC (11.4-15.4)
[2019-10-20] MEDS: IPRATROPIUM/ALBUTEROL 0.5-2.5 MG/3 ML AMPUL NEB SCH ×2 (17:40→20:22)
[2019-10-20] MEDS: AZITHROMYCIN 500 MG in DEXTROSE 5%-WATER 250 ML IV SCH (17:56)
[2019-10-20] MEDS ORDERED: (PENDING PHARMACY ID) (Rosuvastatin Calcium [Crestor 20 Mg Tablet] 20 MG) PO SCH (22:00)
[2019-10-20] MEDS: METHYLPREDNISOLONE INJ 40 MG/1 ML SDV IV SCH (22:21)
[2019-10-20] MEDS: ATORVASTATIN CALCIUM 40 MG TABLET PO SCH (22:21)
[2019-10-20] MEDS: FAMOTIDINE 20 MG TABLET PO SCH (22:21)
[2019-10-21] MEDS: METHYLPREDNISOLONE INJ 40 MG/1 ML SDV IV SCH ×3 (05:29→21:49)
[2019-10-21 06:08] LABS: ABSOLUTE LYMPHOCYTES (AUTO) 0.6 10^3/uL (0.5-4.7); ABSOLUTE MONOCYTES (AUTO) 0.4 10^3/uL (0.1-1.4); ABSOLUTE NEUT (AUTO) 8.4 10^3/uL (1.7-8.2); BASOPHILS % (AUTO) 0.2 % (0-2); HEMATOCRIT 38.1 % (36.0-47.0); HEMOGLOBIN 12.9 g/dL (12.0-15.5); LYMPHOCYTES % (AUTO) 6.5 % (13-45); MEAN CORPUSCULAR HEMOGLOBIN 29.6 pg (27.0-33.4); MEAN CORPUSCULAR HGB CONC 33.7 g/dL (32.0-36.0); MEAN CORPUSCULAR VOLUME 88 fl (80-97); MONOCYTES % (AUTO) 4.3 % (3-13); PLATELET COUNT 329 10^3/uL (150-450); RED BLOOD COUNT 4.34 10^6/uL (3.72-5.28); RED CELL DISTRIBUTION WIDTH 13.6 % (11.5-14.0); TOTAL CELLS COUNTED % (AUTO) 100 %; WHITE BLOOD COUNT 9.4 10^3/uL (4.0-10.5)
[2019-10-21 06:30] LABS: ANION GAP 10 (5-19); BLOOD UREA NITROGEN 14 mg/dL (7-20); CALCIUM 8.8 mg/dL (8.4-10.2); CARBON DIOXIDE 30 mmol/L (22-30); CHLORIDE 98 mmol/L (98-107); GLUCOSE 124 mg/dL (75-110); POTASSIUM 3.9 mmol/L (3.6-5.0)
[2019-10-21] MEDS: IPRATROPIUM/ALBUTEROL 0.5-2.5 MG/3 ML AMPUL NEB SCH ×4 (08:46→21:00)
[2019-10-21] MEDS: ENOXAPARIN SODIUM INJ 40 MG/0.4 ML DISP.SYRIN SUBCUT SCH (10:21)
[2019-10-21] MEDS: DOCUSATE SODIUM 100 MG CAPSULE PO SCH (10:21)
[2019-10-21] MEDS: FLUTICASONE/VILANTEROL 200-25 MCG/DOSE IH SCH (10:21)
[2019-10-21] MEDS: FAMOTIDINE 20 MG TABLET PO SCH ×2 (10:21→21:57)
[2019-10-21] MEDS: HYDROCHLOROTHIAZIDE 25 MG TABLET PO SCH (10:21)
--- NOTE | 2019-10-21 13:14 | PDOC PROGRESS REPORT ---
Subjective Progress Note for:: 10/21/19 Reason For Visit: SHORTNESS OF BREATH,COPD EXACERBATION,HYPOXIA 10/21/2019 Patient states she is less short of breath and asking to go home tomorrow Physical Exam Vital Signs: Temp Pulse Resp BP Pulse Ox 97.6 F 89 18 115/61 95 10/21/19 11:00 10/21/19 12:15 10/21/19 12:15 10/21/19 11:00 10/21/19 12:15 Intake & Output 10/20/19 10/21/19 10/22/19 06:59 06:59 06:59 Intake Total 1941 240 Output Total 1 Balance 1940 240 Weight 57.6 kg General appearance: PRESENT: no acute distress, other - Sitting up in a chair with a nebulizer. Nebulizers ordered every 4 hours while awake Respiratory exam: PRESENT: rhonchi - less rhonchi today when compared to yesterday, wheezes Cardiovascular exam: PRESENT: RRR. ABSENT: diastolic murmur, rubs, systolic murmur Neurological exam: PRESENT: alert, awake, oriented to person, oriented to place, oriented to time, oriented to situation, CN II-XII grossly intact. ABSENT: motor sensory deficit Psychiatric exam: PRESENT: appropriate affect, normal mood. ABSENT: homicidal ideation, suicidal ideation Results Laboratory Results: 10/21/19 05:18 10/21/19 05:18 10/20/19 10/21/19 10/21/19 13:35 05:18 05:18 WBC 9.4 RBC 4.34 Hgb 12.9 Hct 38.1 MCV 88 MCH 29.6 MCHC 33.7 RDW 13.6 Plt Count 329 Seg Neutrophils % 89.0 H Sodium 137.7 Potassium 3.9 Chloride 98 Carbon Dioxide 30 Anion Gap 10 BUN 14 Creatinine 0.35 L Est GFR ( Amer) > 60 Glucose 124 H Calcium 8.8 Magnesium 2.3 Urine Color YELLOW Urine Appearance SLIGHTLY-CLOUDY Urine pH 6.0 Ur Specific [place] 1.006 Urine Protein NEGATIVE Urine Glucose (UA) NEGATIVE Urine Ketones 20 H Urine Blood MODERATE H Urine Nitrite NEGATIVE Ur Leukocyte Esterase NEGATIVE Urine WBC (Auto) 3 Urine RBC (Auto) 3 10/20/19 10/20/19 10/20/19 10:23 10:23 16:51 Creatine Kinase 41 Troponin I < 0.012 NT-Pro-B Natriuret Pep 434 H Impressions: Chest X-Ray 10/20/19 10:10 IMPRESSION: COPD. NO ACUTE RADIOGRAPHIC FINDING IN THE CHEST. Assessment and Plan - Diagnosis (1) Acute respiratory failure with hypoxia Is this a current diagnosis for this admission?: Yes (2) COPD exacerbation Is this a current diagnosis for this admission?: Yes (3) Hypoxia Is this a current diagnosis for this admission?: Yes (4) Tobacco abuse Is this a current diagnosis for this admission?: Yes - Plan Summary Summary: 10/20/2019. Patient will be admitted for IV antibiotics, IV steroids, pulmonary toiletry. Patient is medically stable. Patient had a similar admission about 1 year ago for the exact same problem at which time she was in the hospital about 3 days for that admission. Patient is complaining of being hungry and asking for diet 10/21/2019 WBCs on admission 12,600, today down to 9400 Temperature 97.6, 85 blood pressure 128/87 O2 sat between 93 and 97% on 1 to 2 L nasal cannula We will possibly discharge to home tomorrow on p.o. antibiotics. Patient does not use home O2 - Time Time Spent with patient: 15-24 minutes
[2019-10-21] MEDS: NICOTINE 21 MG/24 HR PATCH.TD24 TD SCH (16:30)
[2019-10-21] MEDS: AZITHROMYCIN 500 MG in DEXTROSE 5%-WATER 250 ML IV SCH (17:03)
[2019-10-21] MEDS: ATORVASTATIN CALCIUM 40 MG TABLET PO SCH (21:57)
[2019-10-22] MEDS: NORMAL SALINE 1000 ML 1,000 ML IV PRN (06:08)
[2019-10-22] MEDS: METHYLPREDNISOLONE INJ 40 MG/1 ML SDV IV SCH (06:08)
[2019-10-22] MEDS: IPRATROPIUM/ALBUTEROL 0.5-2.5 MG/3 ML AMPUL NEB SCH (08:48)
--- NOTE | 2019-10-22 09:25 | PDOC DISCHARGE SUMMARY ---
Impression - Admit/DC Date/PCP Admission Date/Primary Care Provider: 10/20/19 13:38 KOKO CHILDRESS Discharge Date: 10/22/19 - Discharge Diagnosis (1) Acute respiratory failure with hypoxia Is this a current diagnosis for this admission?: Yes (2) COPD exacerbation Is this a current diagnosis for this admission?: Yes (3) Hypoxia Is this a current diagnosis for this admission?: Yes (4) Tobacco abuse Is this a current diagnosis for this admission?: Yes - Assessment Summary: 10/20/2019. Patient will be admitted for IV antibiotics, IV steroids, pulmonary toiletry. Patient is medically stable. Patient had a similar admission about 1 year ago for the exact same problem at which time she was in the hospital about 3 days for that admission. Patient is complaining of being hungry and asking for diet 10/21/2019 WBCs on admission 12,600, today down to 9400 Temperature 97.6, 85 blood pressure 128/87 O2 sat between 93 and 97% on 1 to 2 L nasal cannula We will possibly discharge to home tomorrow on p.o. antibiotics. Patient does not use home O2 10/22/2019 Patient has made tremendous improvement in her hypoxia and her COPD exacerbation. She is asking to go home. Patient is even asking when she can return back to work next week. Told her she needs more bed rest more fluids more p.o. antibiotics and more p.o. steroids. Written prescriptions for all of this.. I would like her to follow-up with her primary care provider the end of next week He is being discharged home on p.o. Zithromax 500 mg for 6 more days Medrol Dosepak and NicoDerm patches 21 mg O2 saturation is anywhere from 90 to 99% Cultures are negative, sputum is growing out Pseudomonas and M catarrhalis which is sensitive to Zithromax patient has taken this medication before. She does have multiple drug allergies to antibiotics - Additional Information Resuscitation Status: Full Code Discharge Diet: As Tolerated Discharge Activity: Activity As Tolerated, Balance Activity w/Rest, Bedrest, Slowly Increase Activity Referrals: TYESHA RAMIREZ FNP-C [Primary Care Provider] - 11/10/19 2:30 pm Prescriptions: Methylprednisolone [Medrol Dosepack (4 mg/Tab) 21 Tab/Dosepak] 4 mg PO ASDIR PRN #21 tab.ds.pk PRN Reason: Nicotine [Nicoderm 21 mg/24 Hr Transderm Patch] 1 each TD DAILY 30 Days #30 patch.td24 Azithromycin [Zithromax 250 mg Tablet] 500 mg PO DAILY #6 tab Home Medications: Albuterol Sulfate [Proair HFA] 2 puff IH Q4HP PRN 11/16/17 Budesonide/Formoterol Fumarate [Symbicort HFA 160-4.5 mcg Inhaler 6 gm] 2 puff IH Q12 10/20/19 Hydrochlorothiazide [Hydrodiuril 25 mg Tablet] 25 mg PO DAILY 10/20/19 Rosuvastatin Calcium [Crestor 20 mg Tablet] 20 mg PO QHS 10/20/19 Azithromycin [Zithromax 250 mg Tablet] 500 mg PO DAILY #6 tab 10/22/19 Methylprednisolone [Medrol Dosepack (4 mg/Tab) 21 Tab/Dosepak] 4 mg PO ASDIR PRN #21 tab.ds.pk 10/22/19 Nicotine [Nicoderm 21 mg/24 Hr Transderm Patch] 1 each TD DAILY 30 Days #30 patch.td24 10/22/19 History of Present Illiness History of Present Illness: JANETH VINSON is a 69 year old female who states that for 3 to 5 days now her she has been more short of breath than usual. Patient denies using home O2. She states that originally she had a productive cough with white sputum but now she has a nonproductive cough. She denies fever or chills.. She states she is a 2 pack/day smoker and still currently smokes. Patient states that she is known she had COPD for 2 years now. Physical Exam Vital Signs: Temp Pulse Resp BP Pulse Ox 97.7 F 95 17 139/74 H 99 10/22/19 00:45 10/22/19 00:45 10/22/19 00:45 10/22/19 00:45 10/22/19 06:22 Intake & Output 10/21/19 10/22/19 10/23/19 06:59 06:59 06:59 Intake Total 1941 2209 Balance 1941 2209 Weight 57.6 kg 57.7 kg Results Laboratory Results: WBC 9.4 10^3/uL (4.0-10.5) 10/21/19 05:18 RBC 4.34 10^6/uL (3.72-5.28) 10/21/19 05:18 Hgb 12.9 g/dL (12.0-15.5) 10/21/19 05:18 Hct 38.1 % (36.0-47.0) 10/21/19 05:18 MCV 88 fl (80-97) 10/21/19 05:18 MCH 29.6 pg (27.0-33.4) 10/21/19 05:18 MCHC 33.7 g/dL (32.0-36.0) 10/21/19 05:18 RDW 13.6 % (11.5-14.0) 10/21/19 05:18 Plt Count 329 10^3/uL (150-450) 10/21/19 05:18 Lymph % (Auto) 6.5 % (13-45) L 10/21/19 05:18 [place] % (Auto) 4.3 % (3-13) 10/21/19 05:18 Eos % (Auto) 0.0 % (0-6) 10/21/19 05:18 Baso % (Auto) 0.2 % (0-2) 10/21/19 05:18 Absolute Neuts (auto) 8.4 10^3/uL (1.7-8.2) H 10/21/19 05:18 Absolute Lymphs (auto) 0.6 10^3/uL (0.5-4.7) 10/21/19 05:18 Absolute Monos (auto) 0.4 10^3/uL (0.1-1.4) 10/21/19 05:18 Absolute Eos (auto) 0.0 10^3/uL (0.0-0.6) 10/21/19 05:18 Absolute Basos (auto) 0.0 10^3/uL (0.0-0.2) 10/21/19 05:18 Seg Neutrophils % 89.0 % (42-78) H 10/21/19 05:18 PT 13.3 SEC (11.4-15.4) 10/20/19 16:51 INR 1.01 10/20/19 16:51 APTT 30.3 SEC (23.5-35.8) 10/21/19 05:18 Carbonic Acid 1.39 mmol/L (1.05-1.35) H 10/20/19 12:12 HCO3/H2CO3 Ratio 21:1 10/20/19 12:12 ABG pH 7.43 (7.35-7.45) 10/20/19 12:12 ABG pCO2 46.1 mmHg (35-45) H 10/20/19 12:12 ABG pO2 59.4 mmHg (80-100) L 10/20/19 12:12 ABG HCO3 29.7 mmol/L (20-24) H 10/20/19 12:12 ABG Total CO2 31.1 mmol/L (21-25) H 10/20/19 12:12 ABG O2 Saturation 91.2 % (94-98) L 10/20/19 12:12 ABG Base Excess 4.5 mmol/L 10/20/19 12:12 FiO2 24% 10/20/19 12:12 Sodium 137.7 mmol/L (137-145) 10/21/19 05:18 Potassium 3.9 mmol/L (3.6-5.0) 10/21/19 05:18 Chloride 98 mmol/L (98-107) 10/21/19 05:18 Carbon Dioxide 30 mmol/L (22-30) 10/21/19 05:18 Anion Gap 10 (5-19) 10/21/19 05:18 BUN 14 mg/dL (7-20) 10/21/19 05:18 Creatinine 0.35 mg/dL (0.52-1.25) L 10/21/19 05:18 Est GFR ( Amer) > 60 (>60) 10/21/19 05:18 Est GFR (MDRD) Non-Af > 60 (>60) 10/21/19 05:18 Glucose 124 mg/dL (75-110) H 10/21/19 05:18 Calcium 8.8 mg/dL (8.4-10.2) 10/21/19 05:18 Magnesium 2.3 mg/dL (1.6-2.3) 10/21/19 05:18 Total Bilirubin 0.9 mg/dL (0.2-1.3) 10/20/19 10:23 Direct Bilirubin 0.4 mg/dL (0.0-0.4) 10/20/19 10:23 Neonat Total Bilirubin Not Reportable 10/20/19 10:23 Neonat Direct Bilirubin Not Reportable 10/20/19 10:23 Neonat Indirect Bili Not Reportable 10/20/19 10:23 AST 25 U/L (14-36) 10/20/19 10:23 ALT 17 U/L (<35) 10/20/19 10:23 Alkaline Phosphatase 104 U/L (38-126) 10/20/19 10:23 Creatine Kinase 41 U/L (30-135) 10/20/19 10:23 Troponin I < 0.012 ng/mL 10/20/19 10:23 NT-Pro-B Natriuret Pep 434 pg/mL (<125) H 10/20/19 16:51 Total Protein 7.2 g/dL (6.3-8.2) 10/20/19 10:23 Albumin 3.9 g/dL (3.5-5.0) 10/20/19 10:23 Urine Color YELLOW 10/20/19 13:35 Urine Appearance SLIGHTLY-CLOUDY 10/20/19 13:35 Urine pH 6.0 (5.0-9.0) 10/20/19 13:35 Ur Specific [place] 1.006 10/20/19 13:35 Urine Protein NEGATIVE mg/dL (NEGATIVE) 10/20/19 13:35 Urine Glucose (UA) NEGATIVE mg/dL (NEGATIVE) 10/20/19 13:35 Urine Ketones 20 mg/dL (NEGATIVE) H 10/20/19 13:35 Urine Blood MODERATE (NEGATIVE) H 10/20/19 13:35 Urine Nitrite NEGATIVE (NEGATIVE) 10/20/19 13:35 Urine Bilirubin NEGATIVE (NEGATIVE) 10/20/19 13:35 Urine Urobilinogen NEGATIVE mg/dL (<2.0) 10/20/19 13:35 Ur Leukocyte Esterase NEGATIVE (NEGATIVE) 10/20/19 13:35 Urine WBC (Auto) 3 /HPF 10/20/19 13:35 Urine RBC (Auto) 3 /HPF 10/20/19 13:35 Urine Mucus (Auto) OCC /LPF 10/20/19 13:35 Urine Ascorbic Acid NEGATIVE (NEGATIVE) 10/20/19 13:35 10/20/19 10/20/19 10:23 16:51 Troponin I < 0.012 NT-Pro-B Natriuret Pep 434 H Impressions: Chest X-Ray 10/20/19 10:10 IMPRESSION: COPD. NO ACUTE RADIOGRAPHIC FINDING IN THE CHEST. Stroke Is this a Stroke Patient?: No Acute Heart Failure - Is this a Heart Failure Patient?: No
[2019-10-22] MEDS: FLUTICASONE/VILANTEROL 200-25 MCG/DOSE IH SCH (09:31)
[2019-10-22] MEDS: HYDROCHLOROTHIAZIDE 25 MG TABLET PO SCH (09:32)
[2019-10-22] MEDS: NICOTINE 21 MG/24 HR PATCH.TD24 TD SCH (09:33)
[2019-10-22] MEDS: DOCUSATE SODIUM 100 MG CAPSULE PO SCH (09:35)
[2019-10-22] MEDS: FAMOTIDINE 20 MG TABLET PO SCH (09:36)
[2019-10-22] MEDS: ENOXAPARIN SODIUM INJ 40 MG/0.4 ML DISP.SYRIN SUBCUT SCH (09:36)
[2019-10-22 09:48] VITALS: BP 118/80
== END 2019-10-22 11:25 | disposition home or self-care (01) ==
LOC: ER 08:44 → INTOOBSV 13:38 → EH 13:38 → 4N 14:30
PROVIDERS: ADMIT Hospitalist; ATTEND Hospitalist
DX: J96.01 Acute respiratory failure with hypoxia (principal); J44.1 Chronic obstructive pulmonary disease with (acute) exacerbation; R53.1 Weakness; R84.5 Abnormal microbiological findings in specimens from respiratory organs and thorax; Z88.1 Allergy status to other antibiotic agents; Z88.0 Allergy status to penicillin; Z88.2 Allergy status to sulfonamides; F17.210 Nicotine dependence, cigarettes, uncomplicated; Z79.899 Other long term (current) drug therapy; Z79.51 Long term (current) use of inhaled steroids; Z23 Encounter for immunization
CPT/HCPCS: 93005; 94640 ×5; 99291; 96361; 96375; 96365; 96366; 36415 ×2; 87040; 87070; 87205; 82803; 82550; 83735; 85025 ×2; 85610; 85730; 87077; 80048; 80053; 81001; 84484; 87186; 83880; 71045; 90686; 93010; G0378 ×3; A9270 ×11; J2920 ×3; J2930; J3475; J7060 ×2; J7121; J7030 ×2; J0456 ×2; J3490; J7620

== ENCOUNTER → 2020-08-07 | Outpatient (CLI) | payer MEDICARE ==
--- NOTE | 2020-08-08 10:11 | RADIOLOGY REPORT (SQ) ---
EXAM DESCRIPTION: PET CT SKULL/THIGH IMAGES COMPLETED DATE/TIME: 08/07/2020 1:34 pm REASON FOR STUDY: R91.8 OTHER NONSPECIFIC ABNORMAL FINDING OF LUNG FIELD R91.8 OTHER NONSPECIFIC AB NORMAL FINDING OF LUNG FIELD COMPARISON: Dictated report from chest CT 07/27/2020 outside facility. RADIONUCLIDE AND DOSE: 9.3 mCi F18 FDG The route of agent administration: Intravenous FASTING BLOOD SUGAR: 100 mg/dl CONTRAST TYPE AND DOSE: No CT contrast given. TECHNIQUE: Blood glucose level was verified. Above dose of FDG was injected intravenously. 2-D seg mented attenuation correction images were obtained from the base of the skull to the midthighs. Nonc ontrast CT images were obtained for attenuation correction and fusion with emission images. CT image s were performed without oral or intravenous contrast and are not sensitive for parenchymal lesions. A series of overlapping emission PET images were obtained. Images reviewed and manipulated at [facility] work station by the radiologist. Images stored on PACS. LIMITATIONS: Considerable brown fat uptake artifact. FINDINGS: HEAD AND NECK: No areas of abnormal metabolic activity in the soft tissues of the head and neck. CHEST: Minimal uptake 1.9 SUV within right upper lobe perifissural lesion measuring 1.7 x 3.4 cm. ABDOMEN AND PELVIS: No areas of abnormal metabolic activity in the abdomen or pelvis. Expected physi ologic activity is present in the genitourinary system and bowel. PROXIMAL LOWER EXTREMITIES: No areas of abnormal metabolic activity in the soft tissues of the lower extremities. BONES: No abnormal metabolic activity in the visualized skeleton. ADDITIONAL CT FINDINGS: Moderate emphysema. Several subcentimeter part solid nodules too small to ch aracterize OTHER: Blood pool activity 1.4 SUV. Liver background 2.0 SUV. IMPRESSION: Non hypermetabolic right upper lobe dominant lesion. The smaller lesions are too small for sufficient negative predictive value and serial chest CT follow-up is recommended. TECHNICAL DOCUMENTATION: JOB ID: [id number] 2010 [employer]- All Rights Reserved Reading location - IP/workstation name: [email or web address]
== END ==
LOC: RAD 08:47
PROVIDERS: ATTEND Nurse Practitioner Primary Care
DX: R91.8 Other nonspecific abnormal finding of lung field (principal); J44.1 Chronic obstructive pulmonary disease with (acute) exacerbation
CPT/HCPCS: 78815; A9552

== ENCOUNTER 2020-11-21 10:16 | Day surgery (SDC) | payer MEDICARE ==
[~2020-11-21 10:16] MED LIST: CHONDR SU A NA/HYALUR INTRAOC KIT (SURGICARE) ONE; EPINEPHRINE INJ/PF 1 MG/1 ML AMPULE ONE; KETOROLAC TROMETHAMINE 0.45% 4 DROP/0.4 ML DROPERETTE OS PRN; LIDOCAINE 1%/PHENYLEPHRINE 1.5% 1 ML VIAL ONE; MIDAZOLAM 2 MG/2 ML INJ ONE
[2020-11-21] MEDS: CYCLOPENTOLATE 0.2%/PHENYLEPHRINE 1% OPH SOLN 2 ML OS PRN ×3 (11:15→11:45)
[2020-11-21] MEDS: BESIFLOXACIN HCL 0.6% OPH SUSP 5 ML BOTTLE OS PRN ×4 (11:15→12:13)
[2020-11-21] MEDS: TROPICAMIDE 1% OPH SOLN 15 ML OS PRN ×3 (11:15→11:45)
[2020-11-21] MEDS: TETRACAINE HCL 0.5% OPH SOLN 4 ML OS PRN ×3 (11:15→11:54)
[2020-11-21] MEDS ORDERED: EPINEPHRINE INJ/PF 1 MG/1 ML AMPULE ONE (11:40)
[2020-11-21] MEDS: MOXIFLOXACIN 1 MG/ML-BSS OPH SOLN 1 ML VIAL ONE ×2 (12:12)
[2020-11-21] MEDS: DORZOLAMIDE HCL 2%/TIMOLOL MALEAT 0.5% OPH SOLN 10 ML OS PRN ×2 (12:13)
[2020-11-21] MEDS: PREDNISOLONE ACETATE 1% OPH SUSP 5 ML OS PRN ×2 (12:13)
--- NOTE | 2020-11-28 14:12 | Operative Report ---
Operative Report-[facility] Operative Report: DATE OF SURGERY: November 21, 2020 PREOPERATIVE DIAGNOSIS: NUCLEAR CATARACT, LEFT EYE. POSTOPERATIVE DIAGNOSIS: NUCLEAR CATARACT, LEFT EYE. PROCEDURE PERFORMED: PHACOEMULSIFICATION WITH POSTERIOR CHAMBER INTRAOCULAR LENS IMPLANT, LEFT EYE. SURGEON: Miko Diaz DO MEDICATIONS AND ANESTHESIA: Versed: IV Versed Tetracaine drops: 1 to 2 drops given as needed COMPLICATION: None INDICATIONS FOR SURGERY: Medical necessity: Best corrected visual acuity worse than 20/40 secondary to cataracts with impairment of ability to carry out needs or desired activities, blurred vision, visual distortion, reduced contrast sensitivity and/or glare with association functional impairment and supporting documentation/testing, and cataracts causing symptomatic impairment of visual functions not corrected with tolerable changes in glasses or contact lenses interfering with activities of daily life. PROCEDURE: Consent: The risks, benefits and alternatives of this procedures was discussed with the patient. The patient read and signed the consent forms, was identified and was seated in the exam chair. IOL: MX 60 E 21.0 IOL Diopters: Phacoemulsification with posterior chamber intraocular lens implant: The face was prepped with 5% povidone iodine solution, and a few drops of 5% povidone iodine solution was instilled into the inferior fornix. A non-fenestrated drape was placed over the eye and the lids were parted with the speculum. A paracentesis was made with a 15 degree blade, and 1% lidocaine MPF followed by viscoelastic was injected into the anterior chamber. A 2.4 mm metal micro- keratome was used to create a temporal clear corneal incision. A circular anterior capsulorrhexis was created, followed by hydro-dissection and hydro- delineation. The phacoemulsification hand piece was inserted and the nucleus was removed with the Phaco chop technique. The irrigation-aspiration hand piece was used to remove the residual cortex, and vacuum the posterior capsule. The capsular bag was inflated and viscoelastic and the above-mentioned IOL was injected into the eye with care to insert both leaning and trailing haptics in the capsular bag. The irrigation/aspiration hand piece was reinserted to remove residual viscoelastic from the capsular bag and anterior chamber. The corneal incision was hydrated, and anterior chamber was inflated with sterile BSS via the paracentesis site, and found to be watertight. Postop medication:1 drop of prednisolone into operative by followed by 1 drop of Cosopt into operative eye followed by 1 drop of Besivance intraoperative by Other:
== END 2020-11-21 12:50 | disposition home or self-care (01) ==
LOC: SC 10:16
PROVIDERS: ATTEND Ophthalmology
DX: H25.12 Age-related nuclear cataract, left eye (principal); E78.00 Pure hypercholesterolemia, unspecified; J44.9 Chronic obstructive pulmonary disease, unspecified; Z87.891 Personal history of nicotine dependence; Z79.51 Long term (current) use of inhaled steroids
CPT/HCPCS: 66984; 00142; V2632; J2250; J3490 ×3; A9270; J0171; 142

== ENCOUNTER 2020-12-05 08:51 | Day surgery (SDC) | payer MEDICARE ==
[~2020-12-05 08:51] MED LIST changes: -CHONDR SU A NA/HYALUR INTRAOC KIT (SURGICARE) ONE; -EPINEPHRINE INJ/PF 1 MG/1 ML AMPULE ONE; +KETOROLAC TROMETHAMINE 0.45% 4 DROP/0.4 ML DROPERETTE OD PRN; -KETOROLAC TROMETHAMINE 0.45% 4 DROP/0.4 ML DROPERETTE OS PRN; -LIDOCAINE 1%/PHENYLEPHRINE 1.5% 1 ML VIAL ONE; -MIDAZOLAM 2 MG/2 ML INJ ONE
[2020-12-05] MEDS ORDERED: ONDANSETRON HCL INJ/PF 4 MG/2 ML SDV ONE (09:09)
[2020-12-05] MEDS ORDERED: MIDAZOLAM 2 MG/2 ML INJ ONE (09:09)
[2020-12-05] MEDS ORDERED: FENTANYL CITRATE INJ/PF 100 MCG/2 ML AMPUL ONE (09:10)
[2020-12-05] MEDS: BESIFLOXACIN HCL 0.6% OPH SUSP 5 ML BOTTLE OD PRN ×4 (09:33→10:33)
[2020-12-05] MEDS: CYCLOPENTOLATE 0.2%/PHENYLEPHRINE 1% OPH SOLN 2 ML OD PRN ×3 (09:33→10:01)
[2020-12-05] MEDS: TETRACAINE HCL 0.5% OPH SOLN 4 ML OD PRN ×4 (09:33→10:10)
[2020-12-05] MEDS: TROPICAMIDE 1% OPH SOLN 15 ML OD PRN ×3 (09:33→10:01)
[2020-12-05] MEDS: LIDOCAINE 1%/PHENYLEPHRINE 1.5% 1 ML VIAL ONE ×2 (10:20)
[2020-12-05] MEDS: EPINEPHRINE INJ/PF 1 MG/1 ML AMPULE ONE ×2 (10:20)
[2020-12-05] MEDS: CHONDR SU A NA/HYALUR INTRAOC KIT (SURGICARE) ONE ×2 (10:20)
[2020-12-05] MEDS: MOXIFLOXACIN 1 MG/ML-BSS OPH SOLN 1 ML VIAL ONE ×2 (10:32)
[2020-12-05] MEDS: DORZOLAMIDE HCL 2%/TIMOLOL MALEAT 0.5% OPH SOLN 10 ML OD PRN ×2 (10:33)
[2020-12-05] MEDS: PREDNISOLONE ACETATE 1% OPH SUSP 5 ML OD PRN ×2 (10:33)
--- NOTE | 2020-12-05 15:49 | Operative Report ---
Operative Report-[facility] Operative Report: DATE OF SURGERY: December 05, 2020 PREOPERATIVE DIAGNOSIS: NUCLEAR CATARACT, RIGHT EYE. POSTOPERATIVE DIAGNOSIS: NUCLEAR CATARACT, RIGHT EYE. PROCEDURE PERFORMED: PHACOEMULSIFICATION WITH POSTERIOR CHAMBER INTRAOCULAR LENS IMPLANT, RIGHT EYE. SURGEON: Miko Diaz DO MEDICATIONS AND ANESTHESIA: Versed: IV Versed Tetracaine drops: 1 to 2 drops given as needed COMPLICATION: None INDICATIONS FOR SURGERY: Medical necessity: Best corrected visual acuity worse than 20/40 secondary to cataracts with impairment of ability to carry out needs or desired activities, blurred vision, visual distortion, reduced contrast sensitivity and/or glare with association functional impairment and supporting documentation/testing, and cataracts causing symptomatic impairment of visual functions not corrected with tolerable changes in glasses or contact lenses interfering with activities of daily life. PROCEDURE: Consent: The risks, benefits and alternatives of this procedures was discussed with the patient. The patient read and signed the consent forms, was identified and was seated in the exam chair. IOL: MX 60 E 22.0 IOL Diopters: Phacoemulsification with posterior chamber intraocular lens implant: The face was prepped with 5% povidone iodine solution, and a few drops of 5% povidone iodine solution was instilled into the inferior fornix. A non-fenestrated drape was placed over the eye and the lids were parted with the speculum. A paracentesis was made with a 15 degree blade, and 1% lidocaine MPF followed by viscoelastic was injected into the anterior chamber. A 2.4 mm metal micro- keratome was used to create a temporal clear corneal incision. A circular anterior capsulorrhexis was created, followed by hydro-dissection and hydro- delineation. The phacoemulsification hand piece was inserted and the nucleus was removed with the Phaco chop technique. The irrigation-aspiration hand piece was used to remove the residual cortex, and vacuum the posterior capsule. The capsular bag was inflated and viscoelastic and the above-mentioned IOL was injected into the eye with care to insert both leaning and trailing haptics in the capsular bag. The irrigation/aspiration hand piece was reinserted to remove residual viscoelastic from the capsular bag and anterior chamber. The corneal incision was hydrated, and anterior chamber was inflated with sterile BSS via the paracentesis site, and found to be watertight. Postop medication: 1 drop of prednisolone into operative by followed by 1 drop of Cosopt into operative eye followed by 1 drop of Besivance intraoperative by other:
== END 2020-12-05 11:05 | disposition home or self-care (01) ==
LOC: SC 08:51
PROVIDERS: ATTEND Ophthalmology
DX: H25.11 Age-related nuclear cataract, right eye (principal); Z98.42 Cataract extraction status, left eye; Z87.891 Personal history of nicotine dependence; E78.00 Pure hypercholesterolemia, unspecified; J44.9 Chronic obstructive pulmonary disease, unspecified; Z79.51 Long term (current) use of inhaled steroids
CPT/HCPCS: 66984; V2632; J2250; J3490 ×3; A9270; J0171; J2405; J3010